=== PATIENT | male | born 1940 | race Hispanic/Latino ===

== ENCOUNTER 2016-09-28 08:55 | Day surgery (SDC) | payer MEDICARE ==
[2016-09-21 14:47] VITALS: BMI 33.0
[2016-09-28 09:19] LABS: ADD MANUAL DIFF? NO
[2016-09-28 09:23] LABS: BASO # 0.02 K/mm3 (0.0-2.0); BASO % 0.3 % (0.0-3.0); EOS # 0.1 (0.0-0.7); EOS % 0.7 % (1.5-5.0); GRAN # 5.36 (1.4-6.5); GRAN % 69.7 % (50.0-68.0); HEMATOCRIT 44.6 % (42.0-52.0); LYMPH # 1.8 (1.2-3.4); LYMPH % 23.1 % (22.0-35.0); MEAN CELL VOLUME 86.1 fL (80.0-105.0); MEAN CORPUSCULAR HEMOGLOBIN 28.8 pg (25.0-35.0); MEAN CORPUSCULAR HGB CONC 33.4 g/dl (31.0-37.0); MEAN PLATELET VOLUME 11.6 fl (7.0-11.0); MONO # 0.5 (0.1-0.6); MONO % 6.2 % (1.0-6.0); PLATELET COUNT 181 10^3/uL (120.0-450.0); RED CELL DISTRIBUTION WIDTH 14.5 % (11.5-14.5); WHITE BLOOD COUNT 7.7 10^3/ul (4.5-11.0)
[2016-09-28 09:32] LABS: ALKALINE PHOSPHATASE 172 U/L (38-133); ALT/SGPT 29 U/L (7-56); AST/SGOT 37 U/L (15-59); BILIRUBIN,TOTAL 1.3 mg/dL (0.2-1.3); BLOOD UREA NITROGEN 12 mg/dL (7-21); CALCIUM 9.5 mg/dL (8.4-10.5); CARBON DIOXIDE 26 mmol/L (21-33); CHLORIDE 102 mmol/L (95-110); GFR AFRICAN-AMERICAN > 60; GLUCOSE,RANDOM 219 mg/dL (70-110); POTASSIUM 4.7 mmol/L (3.6-5.0); SODIUM 143 mmol/L (132-148); TOTAL PROTEIN 8.7 g/dL (5.8-8.3)
[2016-09-28 09:37] LABS: INR 1.09 (0.93-1.08); PARTIAL THROMBOPLASTIN TIME 27.6 Seconds (23.7-30.8)
[2016-09-28] MEDS ORDERED: Methylene Blue 10 mg/ml (1ml) Inj ONE (11:20)
[2016-09-28] MEDS ORDERED: Propofol 10 mg/ml Inj (20 ML) ONE ×2 (11:26→12:31)
[2016-09-28] MEDS ORDERED: Midazolam 2 MG/2 ML VIAL ONE (11:27)
[2016-09-28] MEDS ORDERED: Lactated Ringer's 1,000 ML IV SCH (12:45)
--- NOTE | 2016-09-28 12:54 | RAD ---
HISTORY: SCOPE LOCATION COMPARISON: 04/03/2016 FINDINGS: BOWEL: Unremarkable bowel gas pattern. Colonoscope seen in the region of the mid transverse colon. The precise position cannot be determined from this examination. However, based upon prior examination with colon distended with air, there is tortuosity of the mid transverse colon at approximately the point at which the scope resides on this examination. BONES: Normal. OTHER FINDINGS: None. IMPRESSION: Colonoscope approximately at the level of mid transverse colon.
[2016-09-30 15:29] VITALS: O2SAT 98
[2016-09-30 15:34] VITALS: PULSE 63
[2016-09-30 15:38] VITALS: BP 155/91; RESP 16; TEMP 98.3
== END 2016-09-28 14:10 | disposition home or self-care (01) ==
LOC: ENDO 08:55
PROVIDERS: ATTEND Internal Medicine Gastroenterology
DX: D12.3 Benign neoplasm of transverse colon (principal); I45.2 Bifascicular block; E11.9 Type 2 diabetes mellitus without complications; I10 Essential (primary) hypertension; E78.5 Hyperlipidemia, unspecified; F32.9 Major depressive disorder, single episode, unspecified; R06.09 Other forms of dyspnea
CPT/HCPCS: 36415; 45380; 45381; 74000; 80053; 85025; 85610; 85730; 88305; J2250; J2704; J3010; J7040; J7120; Q9968

== ENCOUNTER 2016-12-28 08:25 | Inpatient (IN) | payer MEDICARE ==
[2016-09-21 14:47] VITALS: BMI 33.0
[2016-12-28 08:53] LABS: ADD MANUAL DIFF? NO
[2016-12-28 08:55] LABS: BASO # 0.02 K/mm3 (0.0-2.0); BASO % 0.2 % (0.0-3.0); EOS % 0.5 % (1.5-5.0); GRAN # 5.87 (1.4-6.5); GRAN % 73.3 % (50.0-68.0); HEMATOCRIT 41.8 % (42.0-52.0); LYMPH # 1.6 (1.2-3.4); LYMPH % 19.9 % (22.0-35.0); MEAN CELL VOLUME 88.7 fL (80.0-105.0); MEAN CORPUSCULAR HEMOGLOBIN 29.9 pg (25.0-35.0); MEAN CORPUSCULAR HGB CONC 33.7 g/dl (31.0-37.0); MEAN PLATELET VOLUME 11.5 fl (7.0-11.0); MONO # 0.5 (0.1-0.6); MONO % 6.1 % (1.0-6.0); PLATELET COUNT 173 10^3/uL (120.0-450.0); RED CELL DISTRIBUTION WIDTH 14.2 % (11.5-14.5)
[2016-12-28 09:04] LABS: BLOOD UREA NITROGEN 13 mg/dL (7-21); CALCIUM 9.6 mg/dL (8.4-10.5); CARBON DIOXIDE 24 mmol/L (21-33); CHLORIDE 103 mmol/L (98-107); GFR AFRICAN-AMERICAN > 60; GLUCOSE,RANDOM 142 mg/dL (70-110); POTASSIUM 3.9 mmol/L (3.6-5.0); SODIUM 141 mmol/L (132-148)
[2016-12-28] MEDS ORDERED: Etomidate 20 mg/10ml Inj IV ONE (10:16)
[2016-12-28] MEDS ORDERED: Succinylcholine 200 mg/10 ml Inj IV ONE (10:16)
[2016-12-28] MEDS ORDERED: Midazolam 2 MG/2 ML VIAL ONE (11:11)
[2016-12-28] MEDS ORDERED: Phenylephrine 10 mg/ml Inj ONE (11:12)
[2016-12-28] MEDS ORDERED: Rocuronium 10 mg/ml (5 ml) ONE ×2 (11:14→13:40)
[2016-12-28] MEDS ORDERED: metroNIDAZOLE IV 500 mg/100 ml 500 MG/100 ML BAG ONE (11:34)
[2016-12-28] MEDS ORDERED: ePHEDrine 50 mg/ml Inj ONE (11:46)
[2016-12-28] MEDS ORDERED: Morphine 4 mg/ml ISec ONE (12:58)
[2016-12-28] MEDS ORDERED: Glycopyrrolate 0.2 mg/ml (2ml vial) ONE (13:52)
[2016-12-28] MEDS ORDERED: Neostigmine Methylsulfate 3mg/3ml Syringe IV ONE (13:53)
[2016-12-28] MEDS ORDERED: Lactated Ringer's 1,000 ML IV SCH (14:18)
[2016-12-28] MEDS ORDERED: HYDROmorphone 0.5 mg/0.5 ml ISec IVP PRN (14:18)
[2016-12-28] MEDS ORDERED: HYDROmorphone 0.5 mg/0.5 ml ISec IVP ONE (14:27)
[2016-12-28] MEDS ORDERED: HYDROmorphone 0.5 mg/0.5 ml ISec ONE (14:28)
--- NOTE | 2016-12-28 14:36 | PCM.SURG1 ---
Surgeon's Initial Post Op Note - Surgeon's Notes Surgeon: Romeo Tanning Wheel Filler: PGY3 Type of Anesthesia: General Endo Pre-Operative Diagnosis: Transverse colon polyp Operative Findings: Proximal transverse colon tattoo, extensive adhesions Post-Operative Diagnosis: Proximal transverse colon polyp Operation Performed: Extended R hemicolectomy, Primary incisional hernia repair , lysis of adhesions Specimen/Specimens Removed: Distal ileum, R colon Estimated Blood Loss: EBL {In ML}: 100 Blood Products Given: N/A Drains Used: No Drains Post-Op Condition: Good Date of Surgery/Procedure: 12/28/16 Time of Surgery/Procedure: 11:15
[2016-12-28] MEDS ORDERED: CeFAZolin 1 gm in NS 100ml IVPB ONE (15:05)
[2016-12-28 15:39] LABS: HEMATOCRIT 42.3 % (42.0-52.0); MEAN CELL VOLUME 89.2 fL (80.0-105.0); MEAN CORPUSCULAR HEMOGLOBIN 29.3 pg (25.0-35.0); MEAN CORPUSCULAR HGB CONC 32.9 g/dl (31.0-37.0); MEAN PLATELET VOLUME 12.3 fl (7.0-11.0); RED CELL DISTRIBUTION WIDTH 14.5 % (11.5-14.5); WHITE BLOOD COUNT 12.2 10^3/ul (4.5-11.0)
--- NOTE | 2016-12-28 16:38 | CARD ---
APPROVED REPORT EKG Measurement Heart [id number] <Conclusion> Sinus rhythm with 1st degree AV block Left axis deviation ILBB Abnormal ECG
[2016-12-28] MEDS: HYDROmorphone 1 mg/ml ISec IVP PRN (16:59)
--- NOTE | 2016-12-28 17:23 | OP ---
PROCEDURE DATE: 12/28/2016 PREOPERATIVE DIAGNOSES: Transverse colon sessile polyp, incarcerated incisional hernia. POSTOPERATIVE DIAGNOSIS: Transverse colon sessile polyp, incarcerated incisional hernia and dense intraabdominal adhesions. PROCEDURE PERFORMED: Extended right hemicolectomy. Repair of incarcerated incisional hernia. Lysis of extensive, dense intraabdominal adhesions. SURGEON: Dr. Walters NIPPING MACHINE OPERATOR: Dr. Dangelo ANESTHESIOLOGIST: Dr. Montaño ANESTHESIA: General endotracheal. ESTIMATED BLOOD LOSS: 100 mL. SPECIMEN: Extended right colon. The patient is a 76-year-old male who had a previously noted sessile polyp in the transverse colon, who was initially attempted to have an endoscopic mucosal resection. However, that was unsuccessful and patient was scheduled for excision of that lesion with the adjacent colon. The patient was brought to the operating room and placed on the operating table in a supine position. The patient was connected to EKG, blood pressure and pulse oximeter monitors. The patient then underwent general endotracheal anesthesia and was prepped and draped in usual sterile fashion. First, standard timeout procedure took place and everybody in the room agreed as to the patient's identity, diagnosis and procedure to be performed. First, a midline incision was made along the previous incision for small bowel surgery. This was carried through the subcutaneous fat and down to the fascia. The old stitches were removed and the incision was started just above the old incision in order to enter the abdominal cavity. Once we were able to enter the abdominal cavity, I noted that there was fairly dense adhesions of omentum to the anterior abdominal wall. This was carefully and tediously taken down as well as the omentum which was stuck within the hernia to the side of the midline was also carefully teased out from the hernia and the hernia defect itself was exposed. The hernia defect appeared to be about 4 cm in diameter. Once the anterior abdominal wall was freed up from the underlying bowel, I then carefully proceeded with evaluation of the bowel. There were dense adhesions of the small bowel in between the loops themselves as well as to the omentum. A tedious and prolonged dissection took place. We were able to finally expose the transverse colon and separate it from the underlying small bowel. It was several t loops of small bowel all the way down to the cecum. This took about an hour and 15 minutes in order to get through all the dense adhesions. At this point, we were able to identify the area of tattooed colon, which indicated the area of the polyp, which appeared to be just about 130 into the transverse colon. Now, in order to proceed with the excision, we decided to proceed with extended right hemicolectomy by mobilizing the right colon all the way down to the cecum and elevating it up above the wound. Now, the transverse colon was transected about 10 cm distal to the lesion using FANY stapler and so was the terminal ileum at about 10 cm prior to the ileocecal valve. Once this was transected, the mesentery was elevated and carefully dissected down through the right branch of the transverse colic vessels down to the ileocolic artery, which was taken out at its origin. All the adjacent lymph nodes were swept together with the specimen. Once the ileocolic artery was ligated, the specimen was sent for pathology. The abdominal cavity was then copiously irrigated and all the irrigant fluid was suctioned out. A standard side-to- side anastomosis between the terminal ileum and transverse colon was created using FANY and TA staplers. The mesenteric defect was repaired using 3-0 Vicryl. A careful evaluation of the remaining portion of the bowel revealed normal bowel other than adhesions which were previously taken down. The abdominal cavity was now copiously irrigated. All the irrigant fluid was suctioned out. The bowel was returned into the abdominal cavity, covered with the remaining portion of the omentum. The NG tube was checked and it was in place. We then proceeded with closure of the abdominal cavity using PDS sutures. Prior to the closure of the fascia, the hernia defect was carefully exposed and the edges of the fascia were now closed using the #1 PDS interrupted [id number] stitches. Once the defect was completely closed, I then proceeded with final closure of the fascia through the midline incision. Once this was completed, the subcutaneous tissues were also reapproximated using 3-0 Vicryl and the skin was closed using surgical anuj. The patient tolerated the procedure well and there were no complications. Sterile dressing was applied to the wound. The patient was awakened, extubated and transferred to the recovery room for further observation. Dudley Walters MD cc: [phone] TT: 12/28/2016 17:22:40 en YOLANDA
[2016-12-28] MEDS ORDERED: Dextrose 5%/0.45% NS 1,000 ML IV SCH (17:45)
[2016-12-28] MEDS: Insulin Lispro (humaLOG) MEDIUM Coverage SC SCH ×2 (18:52→23:22)
[2016-12-28] MEDS: Levalbuterol 0.63 MG/3 ML Inhal Soln UD IH SCH (19:43)
[2016-12-28] MEDS: ceFAZolin 1 gm in NS 1 GM/100 ML BAG IVPB SCH (23:25)
[2016-12-29] MEDS: Levalbuterol 0.63 MG/3 ML Inhal Soln UD IH SCH ×4 (01:55→19:36)
[2016-12-29] MEDS: ceFAZolin 1 gm in NS 1 GM/100 ML BAG IVPB SCH (05:57)
[2016-12-29] MEDS: Insulin Lispro (humaLOG) MEDIUM Coverage SC SCH ×3 (07:02→16:36)
[2016-12-29 07:45] LABS: ADD MANUAL DIFF? NO
[2016-12-29 07:49] LABS: BASO # 0.01 K/mm3 (0.0-2.0); BASO % 0.1 % (0.0-3.0); GRAN # 12.86 (1.4-6.5); GRAN % 85.3 % (50.0-68.0); HEMATOCRIT 34.5 % (42.0-52.0); LYMPH # 0.9 (1.2-3.4); LYMPH % 6.2 % (22.0-35.0); MEAN CELL VOLUME 87.6 fL (80.0-105.0); MEAN CORPUSCULAR HEMOGLOBIN 28.7 pg (25.0-35.0); MEAN CORPUSCULAR HGB CONC 32.8 g/dl (31.0-37.0); MEAN PLATELET VOLUME 12.3 fl (7.0-11.0); MONO # 1.3 (0.1-0.6); MONO % 8.4 % (1.0-6.0); PLATELET COUNT 251 10^3/uL (120.0-450.0); RED CELL DISTRIBUTION WIDTH 14.7 % (11.5-14.5); WHITE BLOOD COUNT 15.1 10^3/ul (4.5-11.0)
[2016-12-29 07:56] LABS: ALB/GLOB RATIO 1.2 (1.1-1.8); BILIRUBIN,TOTAL 0.8 mg/dL (0.2-1.3); CALCIUM 8.9 mg/dL (8.4-10.5); TOTAL PROTEIN 7.4 g/dL (5.8-8.3)
[2016-12-29 08:07] LABS: TROPONIN I 0.04 ng/mL
[2016-12-29] MEDS ORDERED: Sodium Chloride 0.9% 1,000 ML IV SCH (08:30)
[2016-12-29] MEDS: HYDROmorphone 1 mg/ml ISec IVP PRN (09:39)
[2016-12-29] MEDS: Sodium Chloride 0.9% 1,000 ML IV SCH ×2 (10:30→18:30)
--- NOTE | 2016-12-29 10:35 | CP.PCM.PN ---
Subjective - Date & Time of Evaluation Date of Evaluation: 12/29/16 Time of Evaluation: 06:45 - Subjective Subjective: General Surgery Pt S&E, NAEO. Pt with some incisional pain, declining meds at this time. Flores out. Encouraged ambulation. Will make sure pt gets IS device and AE hose. No flatus/BM. Objective - Vital Signs/Intake and Output Vital Signs (last 24 hours): Temp Pulse Resp BP Pulse Ox 97.6 F 111 H 21 152/95 H 92 L 12/29/16 09:28 12/29/16 09:28 12/29/16 09:28 12/29/16 09:28 12/29/16 09:28 Intake and Output: 12/29/16 12/29/16 06:59 18:59 Intake Total 0 Output Total 275 Balance -275 - Medications Medications: Current Medications Heparin Sodium (Porcine) (Heparin) 5,000 units SC Q12 [facility] PRN Reason: Protocol Last Admin: 12/29/16 09:31 Dose: 5,000 units Hydromorphone HCl (Dilaudid) 1 mg IVP Q4H PRN PRN Reason: Pain, moderate (4-7) Last Admin: 12/29/16 09:39 Dose: 1 mg Sodium Chloride (Sodium Chloride 0.9%) 1,000 mls @ 125 mls/hr IV .Q8H [facility] Insulin Human Lispro (Humalog Med) 0 units SC Q6H [facility] PRN Reason: Protocol Last Admin: 12/29/16 07:02 Dose: 3 units Levalbuterol HCl (Xopenex) 0.63 mg IH [id number] [facility] Last Admin: 12/29/16 07:23 Dose: 0.63 mg Ondansetron HCl (Zofran Inj) 4 mg IVP Q4H PRN PRN Reason: Nausea/Vomiting Pantoprazole Sodium (Protonix Inj) 40 mg IVP Q12 [facility] Last Admin: 12/29/16 09:31 Dose: 40 mg - Labs Labs: 12/29/16 07:00 12/29/16 07:00 - Constitutional Appears: Non-toxic, No Acute Distress - Head Exam Head Exam: ATRAUMATIC, NORMOCEPHALIC - Eye Exam Eye Exam: EOMI. absent: Scleral icterus - Respiratory Exam Respiratory Exam: NORMAL BREATHING PATTERN. absent: Respiratory Distress - GI/Abdominal Exam GI & Abdominal Exam: Soft, Tenderness (at incision site). absent: Distended, Firm, Guarding, Rigid, Rebound Additional comments: Dressing C/D/I - Neurological Exam Neurological Exam: Alert, Awake - Skin Skin Exam: Dry, Warm Assessment and Plan - Assessment and Plan (Free Text) Assessment: 76M S/P Extended R hemicolectomy Plan: DCed NGT Get IS and AE hose Increased IVF Analgesia Encouraged Ambulation D/W Dr. Romeo Pyle PGY3
[2016-12-29] MEDS ORDERED: Sodium Chloride 0.9% 1,000 ML IV STA (16:22)
[2016-12-30] MEDS: Levalbuterol 0.63 MG/3 ML Inhal Soln UD IH SCH ×4 (01:34→19:52)
[2016-12-30] MEDS: Sodium Chloride 0.9% 1,000 ML IV SCH ×4 (05:41→18:01)
[2016-12-30] MEDS: HYDROmorphone 1 mg/ml ISec IVP PRN ×3 (05:56→18:05)
[2016-12-30 08:21] LABS: ADD MANUAL DIFF? NO
[2016-12-30 08:26] LABS: GRAN # 11.06 (1.4-6.5); GRAN % 81.9 % (50.0-68.0); HEMATOCRIT 30.7 % (42.0-52.0); LYMPH # 1.3 (1.2-3.4); LYMPH % 9.6 % (22.0-35.0); MEAN CELL VOLUME 87.5 fL (80.0-105.0); MEAN CORPUSCULAR HEMOGLOBIN 28.8 pg (25.0-35.0); MEAN CORPUSCULAR HGB CONC 32.9 g/dl (31.0-37.0); MEAN PLATELET VOLUME 11.8 fl (7.0-11.0); MONO # 1.2 (0.1-0.6); MONO % 8.5 % (1.0-6.0); PLATELET COUNT 212 10^3/uL (120.0-450.0); WHITE BLOOD COUNT 13.5 10^3/ul (4.5-11.0)
[2016-12-30] MEDS: Insulin Lispro (humaLOG) MEDIUM Coverage SC SCH ×4 (08:38→22:00)
[2016-12-30] MEDS: Piperacillin/Tazobact 3.375 gm 100 ML IVPB SCH ×3 (08:39→23:45)
[2016-12-30] MEDS: metroNIDAZOLE IV 500 mg/100 ml 500 MG/100 ML BAG IVPB SCH ×3 (08:39→21:36)
[2016-12-30 08:46] LABS: ALB/GLOB RATIO 1.1 (1.1-1.8); ALKALINE PHOSPHATASE 70 U/L (38-133); ALT/SGPT 41 U/L (7-56); AST/SGOT 44 U/L (15-59); BILIRUBIN,DIRECT 0.4 mg/dL (0.0-0.4); BILIRUBIN,TOTAL 0.6 mg/dL (0.2-1.3); BLOOD UREA NITROGEN 27 mg/dL (7-21); CALCIUM 8.6 mg/dL (8.4-10.5); CARBON DIOXIDE 21 mmol/L (21-33); CHLORIDE 106 mmol/L (98-107); GFR AFRICAN-AMERICAN > 60; GLUCOSE,RANDOM 170 mg/dL (70-110); POTASSIUM 3.8 mmol/L (3.6-5.0); SODIUM 139 mmol/L (132-148); TOTAL PROTEIN 6.8 g/dL (5.8-8.3)
[2016-12-30 09:33] LABS: URINE BILIRUBIN NEGATIVE (NEGATIVE); URINE BLOOD SMALL (NEGATIVE); URINE GLUCOSE (UA) NEGATIVE (NEGATIVE); URINE KETONE 15 mg/dL (NEGATIVE); URINE LEUKOCYTE ESTERASE NEGATIVE Leu/uL (NEGATIVE); URINE PROTEIN 30 mg/dL (<30 mg/dL); URINE UROBILINOGEN 0.2 E.U./dL (<1 E.U./dL)
[2016-12-30 09:34] LABS: URINE APPEARANCE CLEAR (CLEAR); URINE COLOR YELLOW (YELLOW)
--- NOTE | 2016-12-30 09:51 | CP.PCM.PN ---
Subjective - Date & Time of Evaluation Date of Evaluation: 12/30/16 Time of Evaluation: 07:05 - Subjective Subjective: General surgery progress note for Dr. Walters Patient seen and examined at bedside. Patient passed scant amount of urine 2 times last night. Flomax was given. Patient reports of pain at incision site. Patient has not pass flatus or bowel movement yet. Denies fever, chills, nausea or vomiting. Objective - Vital Signs/Intake and Output Vital Signs (last 24 hours): Temp Pulse Resp BP Pulse Ox 99.8 F H 94 H 18 142/89 93 L 12/30/16 08:25 12/30/16 08:25 12/30/16 08:25 12/30/16 08:25 12/30/16 08:25 Intake and Output: 12/30/16 12/30/16 06:59 18:59 Intake Total 540 Output Total 225 Balance 315 - Medications Medications: Current Medications Acetaminophen (Tylenol 325mg Tab) 650 mg PO Q6H PRN PRN Reason: Fever >100.4 F Alprazolam (Xanax) 0.5 mg PO HS [facility] PRN Reason: Protocol Diltiazem HCl (Cardizem Cd) 240 mg PO QPM [facility] Heparin Sodium (Porcine) (Heparin) 5,000 units SC Q12 [facility] PRN Reason: Protocol Last Admin: 12/30/16 09:28 Dose: 5,000 units Hydromorphone HCl (Dilaudid) 1 mg IVP Q4H PRN PRN Reason: Pain, moderate (4-7) Last Admin: 12/30/16 05:56 Dose: 1 mg Sodium Chloride (Sodium Chloride 0.9%) 1,000 mls @ 125 mls/hr IV .Q8H [facility] Last Admin: 12/30/16 08:46 Dose: 125 mls/hr Metronidazole (Flagyl) 500 mg in 100 mls @ 100 mls/hr IVPB Q8 [facility] PRN Reason: Protocol Last Admin: 12/30/16 08:39 Dose: 100 mls/hr Piperacillin Sod/Tazobactam Sod (Zosyn 3.375 In Ns 100ml) 100 mls @ 200 mls/hr IVPB Q8H [facility] PRN Reason: Protocol Stop: 01/06/17 07:59 Last Admin: 12/30/16 08:39 Dose: 200 mls/hr Insulin Human Lispro (Humalog Med) 0 units SC ACHS [facility] PRN Reason: Protocol Last Admin: 12/30/16 08:38 Dose: 1 units Levalbuterol HCl (Xopenex) 0.63 mg IH [id number] [facility] Last Admin: 12/30/16 07:20 Dose: 0.63 mg Montelukast Sodium (Singulair) 10 mg PO QPM [facility] Non-Formulary Medication (Lurasidone Hcl [Latuda]) 60 mg PO QPM [facility] Ondansetron HCl (Zofran Inj) 4 mg IVP Q4H PRN PRN Reason: Nausea/Vomiting Pantoprazole Sodium (Protonix Inj) 40 mg IVP Q12 [facility] Last Admin: 12/30/16 09:28 Dose: 40 mg Tamsulosin HCl (Flomax) 0.4 mg PO DAILY [facility] Last Admin: 12/30/16 09:28 Dose: 0.4 mg - Labs Labs: 12/30/16 08:00 12/30/16 08:00 - Constitutional Appears: Non-toxic, No Acute Distress - Respiratory Exam Respiratory Exam: absent: Respiratory Distress - Cardiovascular Exam Cardiovascular Exam: +S1, +S2 - GI/Abdominal Exam GI & Abdominal Exam: Soft, Tenderness Additional comments: Abdominal binder in place, wound dressing clean, dry and intact. No signs of infection appreciated. Dressing changed with sterile gauze and Tegaderm. - Neurological Exam Neurological Exam: Alert, Awake - Skin Skin Exam: Dry, Warm Assessment and Plan - Assessment and Plan (Free Text) Assessment: 76 male S/P extended right hemicolectomy POD#2 Plan: -Continue with IS and AE hose -Encouraged Ambulation -IVF and flomax -Medical management per primary -Will D/W Dr. Walters
[2016-12-30 10:10] LABS: URINE EPITHELIAL CELLS 0 - 2 /hpf (0-5); URINE RBC 0 - 2 /hpf (0-2)
[2016-12-30 10:11] LABS: URINE BACTERIA SMALL (NEG)
--- NOTE | 2016-12-30 11:00 | RAD ---
HISTORY: POST OP LEUKOCYTOSIS COMPARISON: 12/18/2016 TECHNIQUE: Chest PA and lateral FINDINGS: LUNGS: Currently inspiration is less. Bibasilar discoid atelectatic changes are suggested. No more extensive consolidation suggested PLEURA: No pneumothorax apparent.Minimal interval pleural effusions are possible. CARDIOVASCULAR: Cardiac prominence- likely in large part due to shallow inspiration OSSEOUS STRUCTURES: Moderate thoracic spondylosis. Hypertrophic callus surrounding old healed inferior left rib fractures. Bilateral acromioclavicular joint arthrosis VISUALIZED UPPER ABDOMEN: Normal. OTHER FINDINGS: None. IMPRESSION: Limited inspiration. Bibasilar discoid atelectatic change.
[2016-12-30] MEDS: diltiaZEM 240 mg/24 Hours CD Cap PO SCH (17:38)
[2016-12-30] MEDS: LURASIDONE HCL 60 MG PO SCH (18:00)
[2016-12-31] MEDS: HYDROmorphone 1 mg/ml ISec IVP PRN ×2 (01:39→05:54)
[2016-12-31] MEDS: Sodium Chloride 0.9% 1,000 ML IV SCH ×3 (01:41→18:58)
[2016-12-31] MEDS: Levalbuterol 0.63 MG/3 ML Inhal Soln UD IH SCH ×5 (01:44→19:08)
[2016-12-31] MEDS: metroNIDAZOLE IV 500 mg/100 ml 500 MG/100 ML BAG IVPB SCH ×3 (05:09→21:41)
[2016-12-31] MEDS: Piperacillin/Tazobact 3.375 gm 100 ML IVPB SCH ×4 (05:55→23:16)
[2016-12-31 07:28] LABS: ADD MANUAL DIFF? NO
[2016-12-31 07:30] LABS: BASO # 0.01 K/mm3 (0.0-2.0); BASO % 0.2 % (0.0-3.0); EOS % 0.5 % (1.5-5.0); GRAN # 3.95 (1.4-6.5); GRAN % 62.9 % (50.0-68.0); HEMATOCRIT 27.2 % (42.0-52.0); LYMPH # 1.6 (1.2-3.4); LYMPH % 24.8 % (22.0-35.0); MEAN CELL VOLUME 87.7 fL (80.0-105.0); MEAN CORPUSCULAR HEMOGLOBIN 28.7 pg (25.0-35.0); MEAN CORPUSCULAR HGB CONC 32.7 g/dl (31.0-37.0); MEAN PLATELET VOLUME 10.7 fl (7.0-11.0); MONO # 0.7 (0.1-0.6); MONO % 11.6 % (1.0-6.0); PLATELET COUNT 161 10^3/uL (120.0-450.0); WHITE BLOOD COUNT 6.3 10^3/ul (4.5-11.0)
[2016-12-31 07:46] LABS: ALB/GLOB RATIO 1.1 (1.1-1.8); ALKALINE PHOSPHATASE 55 U/L (38-133); ALT/SGPT 35 U/L (7-56); AST/SGOT 31 U/L (15-59); BILIRUBIN,DIRECT 0.3 mg/dL (0.0-0.4); BILIRUBIN,TOTAL 0.6 mg/dL (0.2-1.3); BLOOD UREA NITROGEN 18 mg/dL (7-21); CALCIUM 7.8 mg/dL (8.4-10.5); CARBON DIOXIDE 24 mmol/L (21-33); CHLORIDE 107 mmol/L (95-110); GFR AFRICAN-AMERICAN > 60; GLUCOSE,RANDOM 139 mg/dL (70-110); MAGNESIUM 1.9 mg/dL (1.7-2.2); POTASSIUM 3.5 mmol/L (3.6-5.0); SODIUM 139 mmol/L (132-148); TOTAL PROTEIN 5.7 g/dL (5.8-8.3)
--- NOTE | 2016-12-31 08:34 | CP.PCM.PN ---
Subjective - Date & Time of Evaluation Date of Evaluation: 12/31/16 Time of Evaluation: 07:25 - Subjective Subjective: General surgery progress note for Dr. Walters Patient seen and examined at bedside. No acute events overnight. Patient complains of pain at incision site. Patient reports of passing flatus but no BM yet. Denies fever, chills, shortness of breath, chest pain, nausea, or vomiting Objective - Vital Signs/Intake and Output Vital Signs (last 24 hours): Temp Pulse Resp BP Pulse Ox 99 F 79 19 133/80 95 12/31/16 08:12 12/31/16 08:12 12/31/16 08:12 12/31/16 08:12 12/31/16 08:12 Intake and Output: 12/31/16 12/31/16 06:59 18:59 Intake Total 1790 Output Total 575 Balance 1215 - Medications Medications: Current Medications Acetaminophen (Tylenol 325mg Tab) 650 mg PO Q6H PRN PRN Reason: Fever >100.4 F Alprazolam (Xanax) 0.5 mg PO HS [facility] PRN Reason: Protocol Last Admin: 12/30/16 21:28 Dose: 0.5 mg Diltiazem HCl (Cardizem Cd) 240 mg PO QPM [facility] Last Admin: 12/30/16 17:38 Dose: 240 mg Diphenhydramine HCl (Benadryl) 25 mg IVP Q12 [facility] Stop: 12/31/16 22:01 Furosemide (Lasix) 20 mg IVP Q12 [facility] Stop: 12/31/16 22:01 Heparin Sodium (Porcine) (Heparin) 5,000 units SC Q12 [facility] PRN Reason: Protocol Last Admin: 12/30/16 21:28 Dose: 5,000 units Hydromorphone HCl (Dilaudid) 1 mg IVP Q4H PRN PRN Reason: Pain, moderate (4-7) Last Admin: 12/31/16 05:54 Dose: 1 mg Sodium Chloride (Sodium Chloride 0.9%) 1,000 mls @ 125 mls/hr IV .Q8H [facility] Last Admin: 12/31/16 01:41 Dose: 125 mls/hr Metronidazole (Flagyl) 500 mg in 100 mls @ 100 mls/hr IVPB Q8 [facility] PRN Reason: Protocol Last Admin: 12/31/16 05:09 Dose: 100 mls/hr Piperacillin Sod/Tazobactam Sod (Zosyn 3.375 In Ns 100ml) 100 mls @ 200 mls/hr IVPB Q8H [facility] PRN Reason: Protocol Stop: 01/06/17 07:59 Last Admin: 12/31/16 08:03 Dose: Not Given Potassium Chloride (Potassium Chloride 20 Meq/100 Ml) 20 meq in 100 mls @ 50 mls/hr IVPB Q2H [facility] Stop: 12/31/16 12:14 Insulin Human Lispro (Humalog Med) 0 units SC ACHS [facility] PRN Reason: Protocol Last Admin: 12/30/16 22:00 Dose: Not Given Levalbuterol HCl (Xopenex) 0.63 mg IH [id number] [facility] Last Admin: 12/31/16 07:52 Dose: 0.63 mg Montelukast Sodium (Singulair) 10 mg PO QPM [facility] Last Admin: 12/30/16 17:39 Dose: 10 mg Non-Formulary Medication (Lurasidone Hcl [Latuda]) 60 mg PO QPM [facility] Last Admin: 12/30/16 18:00 Dose: Not Given Ondansetron HCl (Zofran Inj) 4 mg IVP Q4H PRN PRN Reason: Nausea/Vomiting Pantoprazole Sodium (Protonix Inj) 40 mg IVP Q12 [facility] Last Admin: 12/30/16 21:28 Dose: 40 mg Tamsulosin HCl (Flomax) 0.4 mg PO DAILY [facility] Last Admin: 12/30/16 09:28 Dose: 0.4 mg - Labs Labs: 12/31/16 07:15 12/31/16 07:15 - Constitutional Appears: Non-toxic, No Acute Distress - Head Exam Head Exam: ATRAUMATIC, NORMAL INSPECTION - Eye Exam Eye Exam: EOMI, Normal appearance - ENT Exam ENT Exam: Mucous Membranes Moist - Respiratory Exam Respiratory Exam: NORMAL BREATHING PATTERN. absent: Respiratory Distress - Cardiovascular Exam Cardiovascular Exam: +S1, +S2 - GI/Abdominal Exam GI & Abdominal Exam: Soft, Tenderness (at incision site) Additional comments: Abdominal binder in place, wound dressing dry and intact with multiple surgical anuj in place. No signs of infection appreciated - Neurological Exam Neurological Exam: Alert, Awake, Oriented x3 - Skin Skin Exam: Dry, Warm Assessment and Plan - Assessment and Plan (Free Text) Assessment: 76 male S/P extended right hemicolectomy POD#3 Plan: -Continue with IS and AE hose -Encouraged Ambulation -IVF -C/w flomax, urine output improving -Medical management per primary -Will D/W Dr. Walters
--- NOTE | 2016-12-31 10:21 | CT ---
PROCEDURE: CT Abdomen and Pelvis without intravenous contrast HISTORY: POST COLECTOMY ANEMIA/??BLEED COMPARISON: None. TECHNIQUE: Without oral or IV contrast. Contrast Dose: Radiation dose: Total exam DLP = 1105 mGy-cm. This CT exam was performed using one or more of the following dose reduction techniques: Automated exposure control, adjustment of the mA and/or kV according to patient size, and/or use of iterative reconstruction technique. FINDINGS: LOWER THORAX: There is dense consolidation in the left lower lobe with air bronchograms. Findings consistent with pneumonia LIVER: There is a rim of dense fluid around the liver consistent with intraperitoneal hemorrhage. This has a density measurement between 45 and 55 Hounsfield units. GALLBLADDER AND BILE DUCTS: Unremarkable. PANCREAS: Unremarkable. No gross lesion or ductal dilatation. SPLEEN: Unremarkable. ADRENALS: Unremarkable. No mass. KIDNEYS AND URETERS: Unremarkable. No hydronephrosis. No solid mass. VASCULATURE: Unremarkable. No aortic aneurysm. BOWEL: A suture line is seen in the transverse colon. There has been recent right hemicolectomy. Mildly dilated small bowel loops are seen which may represent a postoperative ileus APPENDIX: Resect PERITONEUM: Small amount of peritoneal hemorrhage LYMPH NODES: Unremarkable. No enlarged lymph nodes. BLADDER: Unremarkable. REPRODUCTIVE: Unremarkable. BONES: No acute fracture. OTHER FINDINGS: None. IMPRESSION: Small amount of intraperitoneal hemorrhage. Mildly dilated small bowel loops consistent with mild postoperative ileus Consolidation and air bronchograms left lower lobe consistent with pneumonia
[2016-12-31] MEDS: Insulin Lispro (humaLOG) MEDIUM Coverage SC SCH ×4 (10:38→22:17)
--- NOTE | 2016-12-31 10:43 | CP.PCM.PN ---
Subjective - Date & Time of Evaluation Date of Evaluation: 12/31/16 Time of Evaluation: 10:30 - Subjective Subjective: SEEN OOB TO CHAIR IN 360-1 NO BM C/O ABD PAIN. Objective - Vital Signs/Intake and Output Vital Signs (last 24 hours): Temp Pulse Resp BP Pulse Ox 99 F 79 19 133/80 95 12/31/16 08:12 12/31/16 08:12 12/31/16 08:12 12/31/16 10:39 12/31/16 08:12 Intake and Output: 12/31/16 12/31/16 06:59 18:59 Intake Total 1790 Output Total 575 Balance 1215 - Medications Medications: Current Medications Acetaminophen (Tylenol 325mg Tab) 650 mg PO Q6H PRN PRN Reason: Fever >100.4 F Acetylcysteine (Acetylcysteine 20%) 4 ml IH [id number] [facility] Alprazolam (Xanax) 0.5 mg PO HS [facility] PRN Reason: Protocol Last Admin: 12/30/16 21:28 Dose: 0.5 mg Diltiazem HCl (Cardizem Cd) 240 mg PO QPM [facility] Last Admin: 12/30/16 17:38 Dose: 240 mg Diphenhydramine HCl (Benadryl) 25 mg IVP Q12 [facility] Stop: 12/31/16 22:01 Furosemide (Lasix) 20 mg IVP Q12 [facility] Stop: 12/31/16 22:01 Last Admin: 12/31/16 10:39 Dose: 20 mg Heparin Sodium (Porcine) (Heparin) 5,000 units SC Q12 [facility] PRN Reason: Protocol Last Admin: 12/31/16 10:39 Dose: 5,000 units Hydromorphone HCl (Dilaudid) 1 mg IVP Q4H PRN PRN Reason: Pain, moderate (4-7) Last Admin: 12/31/16 05:54 Dose: 1 mg Sodium Chloride (Sodium Chloride 0.9%) 1,000 mls @ 125 mls/hr IV .Q8H [facility] Last Admin: 12/31/16 01:41 Dose: 125 mls/hr Metronidazole (Flagyl) 500 mg in 100 mls @ 100 mls/hr IVPB Q8 [facility] PRN Reason: Protocol Last Admin: 12/31/16 05:09 Dose: 100 mls/hr Piperacillin Sod/Tazobactam Sod (Zosyn 3.375 In Ns 100ml) 100 mls @ 200 mls/hr IVPB Q8H [facility] PRN Reason: Protocol Stop: 01/06/17 07:59 Last Admin: 12/31/16 08:03 Dose: Not Given Potassium Chloride (Potassium Chloride 20 Meq/100 Ml) 20 meq in 100 mls @ 50 mls/hr IVPB Q2H [facility] Stop: 12/31/16 12:14 Insulin Human Lispro (Humalog Med) 0 units SC ACHS [facility] PRN Reason: Protocol Last Admin: 12/31/16 10:38 Dose: 1 units Levalbuterol HCl (Xopenex) 0.63 mg IH [id number] [facility] Montelukast Sodium (Singulair) 10 mg PO QPM [facility] Last Admin: 12/30/16 17:39 Dose: 10 mg Non-Formulary Medication (Lurasidone Hcl [Latuda]) 60 mg PO QPM [facility] Last Admin: 12/30/16 18:00 Dose: Not Given Ondansetron HCl (Zofran Inj) 4 mg IVP Q4H PRN PRN Reason: Nausea/Vomiting Pantoprazole Sodium (Protonix Inj) 40 mg IVP Q12 [facility] Last Admin: 12/31/16 10:39 Dose: 40 mg Tamsulosin HCl (Flomax) 0.4 mg PO DAILY [facility] Last Admin: 12/31/16 10:39 Dose: 0.4 mg - Labs Labs: 12/31/16 07:15 12/31/16 07:15 - Constitutional Appears: Well - Head Exam Head Exam: ATRAUMATIC, NORMAL INSPECTION, NORMOCEPHALIC - Eye Exam Eye Exam: EOMI, Normal appearance, PERRL - ENT Exam ENT Exam: Mucous Membranes Moist, Normal Exam - Neck Exam Neck Exam: Full ROM, Normal Inspection. absent: Lymphadenopathy - Respiratory Exam Respiratory Exam: Rhonchi - Cardiovascular Exam Cardiovascular Exam: Tachycardia - GI/Abdominal Exam GI & Abdominal Exam: Distended, Diminished Bowel Sounds, Hypoactive Bowel Sounds - Rectal Exam Rectal Exam: Deferred - Extremities Exam Extremities Exam: Full ROM, Normal Capillary Refill, Normal Inspection. absent : Joint Swelling, Pedal Edema - Back Exam Back Exam: NORMAL INSPECTION - Neurological Exam Neurological Exam: Alert, Awake, CN II-XII Intact, Normal Gait, Oriented x3 Neuro motor strength exam: Left Upper Extremity: 5, Right Upper Extremity: 5, Left Lower Extremity: 5, Right Lower Extremity: 5 - Psychiatric Exam Psychiatric exam: Flat Affect Assessment and Plan - Assessment and Plan (Free Text) Assessment: A/P: POST OPERATIVE INTRA PERITONEAL HEMORRHAGE POST OPERATIVE ANEMIA S/P EXTENDED RIGHT HEMICOLECTOMY TRANSVERSE COLON SESSILE POLYP INCARCERATED INCISIONAL HERNIA DENSE INTRA ABDOMINAL ADHESIONS COPD 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 OBESITY DJD SHOULDERS JOINTS HTN TACHYCARDIA LAHB LBBB T2DM BIBASILAR ATELACTASIS [facility] PNEUMONIA LEUCOCYTOSIS GRANULOCYTOSIS HYPOKALEMIA S/P KEYONNA HYPERURICEMIA ??SEPSIS VS SIRS PLAN PER ORDERS SURGICAL REEVALUATION PRBC TRANSFUSION ID CONSULT Plan: A/P: POST OPERATIVE INTRA PERITONEAL HEMORRHAGE POST OPERATIVE ANEMIA S/P EXTENDED RIGHT HEMICOLECTOMY TRANSVERSE COLON SESSILE POLYP INCARCERATED INCISIONAL HERNIA DENSE INTRA ABDOMINAL ADHESIONS COPD MICRSCOPIC HEMATURIA PROTEINURIA SHELL MDD SCHIZOPHRENIA POST OPERATIVE ILEUS OBESITY DJD SHOULDERS JOINTS HTN TACHYCARDIA LAHB LBBB T2DM BIBASILAR ATELACTASIS [facility] ASSOCIATED PNEUMONIA LEUCOCYTOSIS GRANULOCYTOSIS HYPOKALEMIA S/P KEYONNA HYPERURICEMIA ??SEPSIS VS SIRS PLAN PER ORDERS SURGICAL REEVALUATION PRBC TRANSFUSION ID CONSULT
[2016-12-31] MEDS: DiphenhydrAMINE 50 mg/ml Inj IVP SCH ×2 (10:46→21:42)
[2016-12-31] MEDS: Acetylcysteine 20% Inhal Soln (4ml) IH SCH ×3 (11:40→19:08)
[2016-12-31] MEDS: diltiaZEM 240 mg/24 Hours CD Cap PO SCH (17:45)
[2016-12-31] MEDS: LURASIDONE HCL 60 MG PO SCH (18:58)
[2016-12-31 20:08] LABS: HEMATOCRIT 26.8 % (42.0-52.0); MEAN CELL VOLUME 86.5 fL (80.0-105.0); MEAN CORPUSCULAR HEMOGLOBIN 29.4 pg (25.0-35.0); MEAN PLATELET VOLUME 11.1 fl (7.0-11.0)
[2016-12-31 20:15] LABS: INR 1.14 (0.93-1.08); PARTIAL THROMBOPLASTIN TIME 28.7 Seconds (23.7-30.8)
[2017-01-01 03:19] VITALS: PULSE 70
[2017-01-01] MEDS: metroNIDAZOLE IV 500 mg/100 ml 500 MG/100 ML BAG IVPB SCH (05:34)
[2017-01-01] MEDS: HYDROmorphone 1 mg/ml ISec IVP PRN (05:34)
[2017-01-01 05:44] VITALS: BP 153/80; TEMP 99
--- NOTE | 2017-01-01 07:32 | CP.PCM.PN ---
Subjective - Date & Time of Evaluation Date of Evaluation: 01/01/17 Time of Evaluation: 07:00 - Subjective Subjective: General Surgery Pt S&E, NAEO. 2 units of blood given. BM overnight. Tolerating diet, using IS. C /O some incisional pain. Objective - Vital Signs/Intake and Output Vital Signs (last 24 hours): Temp Pulse Resp BP Pulse Ox 99.0 F 70 20 153/80 H 96 01/01/17 05:33 01/01/17 05:33 01/01/17 05:33 01/01/17 05:33 12/31/16 16:00 Intake and Output: 01/01/17 01/01/17 06:59 18:59 Intake Total 1170 Output Total 1900 Balance -730 - Medications Medications: Current Medications Acetaminophen (Tylenol 325mg Tab) 650 mg PO Q6H PRN PRN Reason: Fever >100.4 F Last Admin: 12/31/16 23:15 Dose: 650 mg Acetylcysteine (Acetylcysteine 20%) 4 ml IH [id number] [facility] Last Admin: 12/31/16 19:08 Dose: 4 ml Alprazolam (Xanax) 0.5 mg PO HS MIKEY PRN Reason: Protocol Last Admin: 12/31/16 21:45 Dose: 0.5 mg Diltiazem HCl (Cardizem Cd) 240 mg PO QPM MIKEY Last Admin: 12/31/16 17:45 Dose: 240 mg Heparin Sodium (Porcine) (Heparin) 5,000 units SC Q12 MIKEY PRN Reason: Protocol Last Admin: 12/31/16 21:43 Dose: 5,000 units Hydromorphone HCl (Dilaudid) 1 mg IVP Q4H PRN PRN Reason: Pain, moderate (4-7) Last Admin: 01/01/17 05:34 Dose: 1 mg Sodium Chloride (Sodium Chloride 0.9%) 1,000 mls @ 125 mls/hr IV .Q8H MIKEY Last Admin: 12/31/16 18:58 Dose: 125 mls/hr Metronidazole (Flagyl) 500 mg in 100 mls @ 100 mls/hr IVPB Q8 MIKEY PRN Reason: Protocol Last Admin: 01/01/17 05:34 Dose: 100 mls/hr Piperacillin Sod/Tazobactam Sod (Zosyn 3.375 In Ns 100ml) 100 mls @ 200 mls/hr IVPB Q8H MIKEY PRN Reason: Protocol Stop: 01/06/17 07:59 Last Admin: 12/31/16 23:16 Dose: 200 mls/hr Insulin Human Lispro (Humalog Med) 0 units SC ACHS MIKEY PRN Reason: Protocol Last Admin: 12/31/16 22:17 Dose: Not Given Levalbuterol HCl (Xopenex) 0.63 mg IH [id number] [facility] Last Admin: 12/31/16 19:08 Dose: 0.63 mg Montelukast Sodium (Singulair) 10 mg PO QPM [facility] Last Admin: 12/31/16 17:45 Dose: 10 mg Non-Formulary Medication (Lurasidone Hcl [Latuda]) 60 mg PO QPM [facility] Last Admin: 12/31/16 18:58 Dose: Not Given Ondansetron HCl (Zofran Inj) 4 mg IVP Q4H PRN PRN Reason: Nausea/Vomiting Pantoprazole Sodium (Protonix Inj) 40 mg IVP Q12 [facility] Last Admin: 12/31/16 21:42 Dose: 40 mg Tamsulosin HCl (Flomax) 0.4 mg PO DAILY [facility] Last Admin: 12/31/16 10:39 Dose: 0.4 mg - Labs Labs: 12/31/16 19:45 12/31/16 07:15 PT 12.3 Seconds (9.9-11.8) H 12/31/16 19:45 INR 1.14 (0.93-1.08) H 12/31/16 19:45 APTT 28.7 Seconds (23.7-30.8) 12/31/16 19:45 - Constitutional Appears: Non-toxic, No Acute Distress - Head Exam Head Exam: ATRAUMATIC, NORMOCEPHALIC - Eye Exam Eye Exam: EOMI. absent: Scleral icterus - Respiratory Exam Respiratory Exam: NORMAL BREATHING PATTERN. absent: Respiratory Distress - GI/Abdominal Exam GI & Abdominal Exam: Soft, Tenderness (at incision site). absent: Distended, Firm, Guarding, Rigid Additional comments: Dressing D/I, small serosanguinous staining - Neurological Exam Neurological Exam: Alert, Awake - Psychiatric Exam Psychiatric exam: Normal Affect, Normal Mood - Skin Skin Exam: Dry, Warm Assessment and Plan - Assessment and Plan (Free Text) Assessment: 76M S/P Extended R hemicolectomy POD#4 Plan: F/U Hgb Advanced diet for lunch Will Change dressing Encouraged Ambulation, IS use D/W Dr. Romeo Pyle PGY3
[2017-01-01] MEDS: Levalbuterol 0.63 MG/3 ML Inhal Soln UD IH SCH ×2 (07:48→13:32)
[2017-01-01] MEDS: Acetylcysteine 20% Inhal Soln (4ml) IH SCH ×2 (07:48→13:32)
--- NOTE | 2017-01-01 07:52 | CP.PCM.PN ---
Subjective - Date & Time of Evaluation Date of Evaluation: 01/01/17 Time of Evaluation: 07:30 - Subjective Subjective: (covering for Dr. Hutson) Patient is seen this morning. Patient's abdomen is distended. He says that he is passing gas and had a bowel movement yesterday. Objective - Vital Signs/Intake and Output Vital Signs (last 24 hours): Temp Pulse Resp BP Pulse Ox 99.0 F 70 20 153/80 H 96 01/01/17 05:33 01/01/17 05:33 01/01/17 05:33 01/01/17 05:33 12/31/16 16:00 Intake and Output: 01/01/17 01/01/17 06:59 18:59 Intake Total 1170 Output Total 1900 Balance -730 - Medications Medications: Current Medications Acetaminophen (Tylenol 325mg Tab) 650 mg PO Q6H PRN PRN Reason: Fever >100.4 F Last Admin: 12/31/16 23:15 Dose: 650 mg Acetylcysteine (Acetylcysteine 20%) 4 ml IH [id number] MIKEY Last Admin: 12/31/16 19:08 Dose: 4 ml Alprazolam (Xanax) 0.5 mg PO HS MIKEY PRN Reason: Protocol Last Admin: 12/31/16 21:45 Dose: 0.5 mg Diltiazem HCl (Cardizem Cd) 240 mg PO QPM [facility]KEY Last Admin: 12/31/16 17:45 Dose: 240 mg Heparin Sodium (Porcine) (Heparin) 5,000 units SC Q12 MIKEY PRN Reason: Protocol Last Admin: 12/31/16 21:43 Dose: 5,000 units Hydromorphone HCl (Dilaudid) 1 mg IVP Q4H PRN PRN Reason: Pain, moderate (4-7) Last Admin: 01/01/17 05:34 Dose: 1 mg Sodium Chloride (Sodium Chloride 0.9%) 1,000 mls @ 125 mls/hr IV .Q8H [facility]KEY Last Admin: 12/31/16 18:58 Dose: 125 mls/hr Metronidazole (Flagyl) 500 mg in 100 mls @ 100 mls/hr IVPB Q8 MIKEY PRN Reason: Protocol Last Admin: 01/01/17 05:34 Dose: 100 mls/hr Piperacillin Sod/Tazobactam Sod (Zosyn 3.375 In Ns 100ml) 100 mls @ 200 mls/hr IVPB Q8H MIKEY PRN Reason: Protocol Stop: 01/06/17 07:59 Last Admin: 12/31/16 23:16 Dose: 200 mls/hr Insulin Human Lispro (Humalog Med) 0 units SC ACHS MIKEY PRN Reason: Protocol Last Admin: 12/31/16 22:17 Dose: Not Given Levalbuterol HCl (Xopenex) 0.63 mg IH [id number] [facility] Last Admin: 12/31/16 19:08 Dose: 0.63 mg Montelukast Sodium (Singulair) 10 mg PO QPM [facility] Last Admin: 12/31/16 17:45 Dose: 10 mg Non-Formulary Medication (Lurasidone Hcl [Latuda]) 60 mg PO QPM [facility] Last Admin: 12/31/16 18:58 Dose: Not Given Ondansetron HCl (Zofran Inj) 4 mg IVP Q4H PRN PRN Reason: Nausea/Vomiting Pantoprazole Sodium (Protonix Inj) 40 mg IVP Q12 [facility] Last Admin: 12/31/16 21:42 Dose: 40 mg Tamsulosin HCl (Flomax) 0.4 mg PO DAILY [facility] Last Admin: 12/31/16 10:39 Dose: 0.4 mg - Labs Labs: 12/31/16 19:45 12/31/16 07:15 PT 12.3 Seconds (9.9-11.8) H 12/31/16 19:45 INR 1.14 (0.93-1.08) H 12/31/16 19:45 APTT 28.7 Seconds (23.7-30.8) 12/31/16 19:45 - Constitutional Appears: No Acute Distress - Head Exam Head Exam: ATRAUMATIC, NORMOCEPHALIC - Respiratory Exam Respiratory Exam: Clear to Ausculation Bilateral, NORMAL BREATHING PATTERN - Cardiovascular Exam Cardiovascular Exam: +S1, +S2 - GI/Abdominal Exam GI & Abdominal Exam: Distended, Soft Additional comments: binder in place - Neurological Exam Neurological Exam: Alert, Awake Assessment and Plan - Assessment and Plan (Free Text) Assessment: s/p right hemicolectomy postop intraperitoneal hemorrhage COPD HTN Type II DM Plan: Patient with distended abdomen. He says that he is passing gas and had a bowel movement. He is status post right hemicolectomy on liquid diet. Diet to be advanced today as per surgery. awaiting results of chemistry and CBC. followup potassium and hemoglobin levels. awaiting ID consult for possible sepsis. CT abdomen and pelvis shows pneumonia. Patient is currently on IV Zosyn and Flagyl. blood and urine cultures negative so far
[2017-01-01] MEDS ORDERED: Meropenem 1g/NS 100mL IVPB 1 GM/100 ML PIGGYBACK IVPB SCH (08:09)
--- NOTE | 2017-01-01 08:15 | CP.PCM.CON ---
History of Present Illness - History of Present Illness History of Present Illness: WEAKNESS FOR DAYS Review of Systems - Review of Systems Systems not reviewed;Unavailable: Acuity of Condition, Unstable Vital Signs, Respiratory Distress, Dementia, Altered Mental Status, Intoxicated, Uncooperative, Psychotic, Intubated, Language Barrier, Other Past Patient History - Past Medical History & Family History Past Medical History?: Yes - Past Social History Smoking Status: Never Smoked - CARDIAC Hx Cardiac Disorders: Yes Hx Hypercholesterolemia: Yes Hx Hypertension: Yes - PULMONARY Hx Respiratory Disorders: Yes Hx Asthma: Yes - NEUROLOGICAL Hx Paralysis: No - HEMATOLOGICAL/ONCOLOGICAL Hx Blood Disorders: No Hx Anemia: Yes - MUSCULOSKELETAL/RHEUMATOLOGICAL Hx Falls: No - GASTROINTESTINAL Hx Gastrointestinal Disorders: Yes - GENITOURINARY/GYNECOLOGICAL Hx Genitourinary Disorders: No - PSYCHIATRIC Hx Emotional Abuse: No Hx Physical Abuse: No - SURGICAL HISTORY Hx Surgeries: Yes - ANESTHESIA Hx Anesthesia Reactions: No Hx Malignant Hyperthermia: No Meds Allergies/Adverse Reactions: Allergies Allergy/AdvReac Type Severity Reaction Status Date / Time No Known Allergies Allergy Verified 09/21/16 14:47 - Medications Medications: Current Medications Acetaminophen (Tylenol 325mg Tab) 650 mg PO Q6H PRN PRN Reason: Fever >100.4 F Last Admin: 12/31/16 23:15 Dose: 650 mg Acetylcysteine (Acetylcysteine 20%) 4 ml IH [id number] [facility] Last Admin: 01/01/17 07:48 Dose: 4 ml Alprazolam (Xanax) 0.5 mg PO HS MIKEY PRN Reason: Protocol Last Admin: 12/31/16 21:45 Dose: 0.5 mg Diltiazem HCl (Cardizem Cd) 240 mg PO QPM [facility] Last Admin: 12/31/16 17:45 Dose: 240 mg Doxycycline Hyclate (Doryx) 100 mg PO Q12 MIKEY PRN Reason: Protocol Stop: 01/10/17 10:01 Heparin Sodium (Porcine) (Heparin) 5,000 units SC Q12 MIKEY PRN Reason: Protocol Last Admin: 12/31/16 21:43 Dose: 5,000 units Hydromorphone HCl (Dilaudid) 1 mg IVP Q4H PRN PRN Reason: Pain, moderate (4-7) Last Admin: 01/01/17 05:34 Dose: 1 mg Sodium Chloride (Sodium Chloride 0.9%) 1,000 mls @ 125 mls/hr IV .Q8H [facility] Last Admin: 12/31/16 18:58 Dose: 125 mls/hr Meropenem 1g/NS 100mL IVPB (Meropenem 1g/Ns 100ml Ivpb) 1 gm in 100 mls @ 100 mls/hr IVPB Q8 MIKEY PRN Reason: Protocol Stop: 01/10/17 08:10 Insulin Human Lispro (Humalog Med) 0 units SC ACHS IMKEY PRN Reason: Protocol Last Admin: 12/31/16 22:17 Dose: Not Given Levalbuterol HCl (Xopenex) 0.63 mg IH [id number] [facility] Last Admin: 01/01/17 07:48 Dose: 0.63 mg Montelukast Sodium (Singulair) 10 mg PO QPM [facility] Last Admin: 12/31/16 17:45 Dose: 10 mg Non-Formulary Medication (Lurasidone Hcl [Latuda]) 60 mg PO QPM [facility] Last Admin: 12/31/16 18:58 Dose: Not Given Ondansetron HCl (Zofran Inj) 4 mg IVP Q4H PRN PRN Reason: Nausea/Vomiting Pantoprazole Sodium (Protonix Inj) 40 mg IVP Q12 [facility] Last Admin: 12/31/16 21:42 Dose: 40 mg Tamsulosin HCl (Flomax) 0.4 mg PO DAILY [facility] Last Admin: 12/31/16 10:39 Dose: 0.4 mg Physical Exam - Constitutional Appears: Well (ABD WALL WOUND IS CLEAN) - Head Exam Head Exam: ATRAUMATIC, NORMAL INSPECTION, NORMOCEPHALIC - Eye Exam Eye Exam: EOMI, Normal appearance, PERRL Pupil Exam: NORMAL ACCOMODATION, PERRL - ENT Exam ENT Exam: Mucous Membranes Moist, Normal Exam - Neck Exam Neck exam: Positive for: Normal Inspection - Respiratory Exam Respiratory Exam: Clear to Auscultation Bilateral, NORMAL BREATHING PATTERN - Cardiovascular Exam Cardiovascular Exam: REGULAR RHYTHM - GI/Abdominal Exam GI & Abdominal Exam: Normal Bowel Sounds, Soft. absent: Tenderness - Rectal Exam Rectal Exam: NORMAL INSPECTION - Exam Exam: Circumcision, NORMAL INSPECTION External exam: NORMAL EXTERNAL EXAM Speculum exam: NORMAL SPECULUM EXAM Bimanual exam: NORMAL BIMANUAL EXAM - Extremities Exam Extremities exam: Positive for: normal inspection - Back Exam Back exam: NORMAL INSPECTION - Neurological Exam Neurological exam: Alert, CN II-XII Intact, Normal Gait, Oriented x3, Reflexes Normal - Psychiatric Exam Psychiatric exam: Normal Affect, Normal Mood - Skin Skin Exam: Dry, Intact, Normal Color, Warm Results - Vital Signs Recent Vital Signs: Last Vital Signs Temp 99.0 F 01/01/17 05:33 Pulse 70 01/01/17 05:33 Resp 20 01/01/17 05:33 BP 153/80 H 01/01/17 05:33 Pulse Ox 96 12/31/16 16:00 - Labs Result Diagrams: 12/31/16 19:45 12/31/16 07:15 Labs: Laboratory Results - last 24 hr 12/31/16 12/31/16 12/31/16 07:37 08:35 11:48 WBC RBC Hgb Hct MCV MCH MCHC RDW Plt Count MPV PT INR APTT POC Glucose (mg/dL) 172 H 249 H Blood Type A NEGATIVE Antibody Screen Negative Crossmatch See Detail BBK History Checked Patient has bt 12/31/16 12/31/16 12/31/16 12:52 16:18 19:45 WBC 6.0 RBC 3.10 L Hgb 9.1 L Hct 26.8 L MCV 86.5 MCH 29.4 MCHC 34.0 RDW 15.0 H Plt Count 162 MPV 11.1 H PT INR APTT 27.3 POC Glucose (mg/dL) 140 H Blood Type Antibody Screen Crossmatch BBK History Checked 12/31/16 12/31/16 01/01/17 19:45 21:30 07:33 WBC RBC Hgb Hct MCV MCH MCHC RDW Plt Count MPV PT 12.3 H INR 1.14 H APTT 28.7 POC Glucose (mg/dL) 147 H 158 H Blood Type Antibody Screen Crossmatch BBK History Checked Assessment & Plan (1) Sepsis Status: Acute (2) Healthcare-associated pneumonia Status: Acute (3) S/P right hemicolectomy Status: Acute - Assessment and Plan (Free Text) Plan: MERR/DOXY CK PROCAL CK CASTILLO CULTU - Date & Time Date: 01/01/17 Time: 07:45
[2017-01-01] MEDS: Piperacillin/Tazobact 3.375 gm 100 ML IVPB SCH (08:16)
[2017-01-01] MEDS: Insulin Lispro (humaLOG) MEDIUM Coverage SC SCH ×2 (08:36→12:24)
[2017-01-01 08:55] LABS: ADD MANUAL DIFF? NO
[2017-01-01 09:03] LABS: BASO # 0.01 K/mm3 (0.0-2.0); BASO % 0.1 % (0.0-3.0); EOS # 0.1 (0.0-0.7); EOS % 0.9 % (1.5-5.0); GRAN # 5.02 (1.4-6.5); GRAN % 71.9 % (50.0-68.0); HEMATOCRIT 31.6 % (42.0-52.0); LYMPH # 1.3 (1.2-3.4); LYMPH % 18.8 % (22.0-35.0); MEAN CELL VOLUME 86.8 fL (80.0-105.0); MEAN CORPUSCULAR HEMOGLOBIN 28.3 pg (25.0-35.0); MEAN CORPUSCULAR HGB CONC 32.6 g/dl (31.0-37.0); MEAN PLATELET VOLUME 10.8 fl (7.0-11.0); MONO # 0.6 (0.1-0.6); MONO % 8.3 % (1.0-6.0); PLATELET COUNT 151 10^3/uL (120.0-450.0); RED CELL DISTRIBUTION WIDTH 14.9 % (11.5-14.5)
[2017-01-01 09:08] LABS: ALKALINE PHOSPHATASE 57 U/L (38-133); ALT/SGPT 37 U/L (7-56); AST/SGOT 28 U/L (15-59); BILIRUBIN,DIRECT 0.4 mg/dL (0.0-0.4); BILIRUBIN,TOTAL 1.4 mg/dL (0.2-1.3); BLOOD UREA NITROGEN 10 mg/dL (7-21); CALCIUM 8.2 mg/dL (8.4-10.5); CARBON DIOXIDE 26 mmol/L (21-33); CHLORIDE 102 mmol/L (98-107); GFR AFRICAN-AMERICAN > 60; GLUCOSE,RANDOM 156 mg/dL (70-110); MAGNESIUM 1.5 mg/dL (1.7-2.2); POTASSIUM 3.1 mmol/L (3.6-5.0); SODIUM 136 mmol/L (132-148); TOTAL PROTEIN 6.3 g/dL (5.8-8.3)
[2017-01-01] MEDS ORDERED: Magnesium Sulfate 1 gm in D5W 1 GM/100 ML BAG IVPB ONE (09:26)
[2017-01-01 10:04] VITALS: RESP 19; O2SAT 99
[2017-01-01] MEDS ORDERED: Magnesium Sulfate 2 GM in Sodium Chloride 0.9% 100 ML IVPB ONE (11:27)
[2017-01-01] MEDS ORDERED: Pneumococcal 23-Valent Vaccine IM ONE (12:53)
[2017-01-01] MEDS ORDERED: Potassium Chloride 20 mEq ER Tab PO ONE (14:00)
--- NOTE | 2017-01-26 00:49 | PN ---
DATE OF SERVICE: 12/30/2016 LOCATION: The patient is seen in room 360. SUBJECTIVE: The patient is seen lying in the bed. The patient is comfortable. . PHYSICAL EXAMINATION VITAL SIGNS: T-max 101.3 down to 99.8, heart rate 104, 94 and 98. Blood pressure is 142/89 and 149/45, respirations 18 and O2 sat is 95% to 93%. HEAD: Normocephalic and atraumatic. HEENT: Shows pinkish pale conjunctivae, anicteric sclerae, dry oral mucosa. NECK: No neck rigidity. CHEST: Symmetrical. LUNGS: Shows occasional rhonchi. ABDOMEN: Protuberant, positive abdominal binder. GENITALIA: Male. RECTAL Deferred. EXTREMITIES: Show no pitting edema. No calf tenderness. No Marlyn's signs. NEUROLOGIC: The patient is alert, awake, oriented x3. Cranial nerve II through XII intact. Gait examination is not tested. MUSCULOSKELETAL: Shows an elevated body mass index of 33. DIAGNOSTICS: On 12/30/2016, WBC has gone up to 13.5, hemoglobin and hematocrit 10.1 and 30.7, platelet 212, granulocytes 82% segs. Chemistry from 12/30/2016 shows, sodium 139, potassium 3.8, chloride 106, CO2 of 21, anion gap 16, BUN 27, creatinine 1.1, GFR greater than 60, glucose 117, lactic acid 1.5, PSA is negative at 1.8, procalcitonin level is negative at 0.38. Urine pH 6.0, specific gravity 1.030, urine protein 30, urine small blood traced granulocytes. Chest x-ray was done on 12/30/2016, which is reviewed. Chest x-ray is also noted. IMPRESSION: 1. Postoperative fever. 2. Tachycardia. 3. Transient hypoxemia with history of chronic obstructive pulmonary disease. 4. Leukocytosis with granulocytosis. 5. Normocytic anemia. 6. Postoperative fever and leukocytosis. 7. Status post acute kidney injury. 8. Prerenal kidney injury. 9. Hyperuricemia. 10. Proteinuria microscopic hematuria. 11. Bibasilar atelectasis. 12. Left rib fracture. 13. Bilateral acromioclavicular joint arthritis. 14. Questionable incomplete left bundle-branch block and left anterior hemiblock. 15. Status post extended right hemicolectomy for transverse colon sessile polyp and incarcerated incisional hernia and dense intra abdominal adhesions. 16. History of recurrent sessile transverse colon polyp with attempted endoscopic mucosal resection, unsuccessful. POST OPERATIVE INTRA PERITONEAL HEMORRHAGE POST OPERATIVE ANEMIA S/P EXTENDED RIGHT HEMICOLECTOMY TRANSVERSE COLON SESSILE POLYP INCARCERATED INCISIONAL HERNIA DENSE INTRA ABDOMINAL ADHESIONS COPD MICRSCOPIC HEMATURIA PROTEINURIA SHELL MDD SCHIZOPHRENIA POST OPERATIVE ILEUS OBESITY DJD SHOULDERS JOINTS HTN TACHYCARDIA LAHB LBBB T2DM BIBASILAR ATELACTASIS [facility] PNEUMONIA LEUCOCYTOSIS GRANULOCYTOSIS HYPOKALEMIA S/P KEYONNA HYPERURICEMIA ??SEPSIS VS SIRS PLAN: At this time, the patient is to be continued on therapeutic intervention as per MAR. The patient's further management will be dependent upon the patient's clinical condition, hemodynamics status, and as per the patient's response to therapeutic intervention as per patient's diagnostic test results and as per recommendation by surgery and medical team. Dictated and electronically signed, not read. Signing off Get Hutson MD Get Hutson MD YOLANDA
--- NOTE | 2017-01-26 05:10 | CON ---
DATE: 12/28/2016 The patient was requested to be seen by Dr. Walters for medical management. The patient was seen in room #360, bed #2 after surgery. The patient was seen in the office few days ago for surgical clearance. The patient was seen in the room after the patient underwent extended right hemicolectomy, primary incisional hernia repair and lysis of adhesion. The patient was seen lying in the bed. CODE STATUS: Full code. LIVING WILL/ADVANCE DIRECTIVE: None. ALLERGIES: None. HEIGHT: 5 feet 6 inches. BMI: 33. HOME MEDICATIONS: Metformin 1000 mg twice a day, Cardizem CD 240 mg daily, Amaryl 4 mg twice a day, Advair Diskus 250/50 twice a day, Singulair 10 mg daily, magnesium oxide 400 mg twice a day, Latuda 60 mg daily, MiraLax 17 g p.r.n., Prilosec 40 mg daily, Lipitor 20 mg daily, Xanax 0.5 at bedtime, Ecotrin 81 mg daily, nebulizer treatment, Flomax 0.4 mg daily and Protonix 40 mg daily. SOCIAL HISTORY: Positive for former smoker. Positive for occasional alcohol. PAST MEDICAL AND SURGICAL HISTORY: History of hypertension, history of diabetes mellitus, history of chronic obstructive pulmonary disease, history of questionable pulmonary nodule, history of obesity, history of constipation, history of gastroesophageal reflux, history of anxiety and depression, history of dyslipidemia, history of prostatic hypertrophy, history of hypomagnesemia, history of questionable silent RI many years ago with a negative stress test, history of colonoscopy and endoscopy. The patient has a history of colonic polyp, history of rib fracture, history of intentional tremors, history of social alcohol use and history of former smoker. The patient's past medical history is significant for supraglottic larynx soft tissue thickening and narrowing for which the patient was referred to ears, nose and throat. The patient also has a history of pharyngitis. The patient's past medical history is significant for centrilobular emphysema, history of atelectasis, history of left upper lobe nodule, history of pulmonary nodule, history of degenerative joint disease of the cervical spine, history of kyphosis and history of prominent tonsils. The patient's past medical history is significant for proteinuria, history of renal cyst, history of fatty liver and history of hepatic steatosis. The patient's past medical history is significant for history of chronic gastritis, history of hyperplastic gastric polyp, history of transverse colon polyp with focal adenomatous changes and tubular adenoma of the ascending colon. The patient's past medical history is also significant for history of transverse colon, polypoid lesion, history of rectal polyp, tubular adenoma and hyperplastic polyp, status post polypectomy. The patient's past medical history is also significant for transverse colon polyp and tubular adenoma. The patient's past medical history is also significant for left ventricular ejection fraction of 61% and history of morbid obesity. Past medical history is also significant for history of incomplete right bundle branch block versus right ventricular conduction delay and history of left anterior hemiblock. The patient's past medical history is also significant for history of colonoscopy, history of therapeutic procedure for colon polyp, history of transverse colon carpet-like polyp with Mceknna classification *------* and history of internal hemorrhoids. The patient's past medical history is also significant for recurrent transverse colon polyp, Mckenna classification IIB; history of rectal polyp, history of diverticulosis and history of internal hemorrhoids. The patient's past medical history is also significant for questionable noncompliance. PHYSICAL EXAMINATION: GENERAL: The patient was seen in the room in room #360. VITAL SIGNS: T-max 98.8 to 98.7. The patient's heart rate was 66 to 74. Blood pressure 154/78, 152/84, 146/77 and 143/86. Respirations 20. O2 saturation 98% to 95%. HEENT: Head; normocephalic and atraumatic. HEENT examination shows pink conjunctivae, anicteric sclerae. No oropharyngeal lesion. NECK: No neck rigidity. CHEST: Kyphosis. LUNGS: Show no rales, crackles or wheezing. Occasional rhonchi. CARDIOVASCULAR: S1 and S2. Regular rhythm. ABDOMEN: Protuberant with positive abdominal binder. Positive surgical scar. GENITALIA: Male. RECTAL: Deferred. EXTREMITIES: Show no pitting edema, no calf tenderness and no Marlyn's signs. NEUROLOGIC: The patient is alert, awake and responsive. MUSCULOSKELETAL: Shows a body mass index of 33. Positive Flores catheter noted. VASCULAR: Palpable pulses. DIAGNOSTICS: WBC 8.0, hemoglobin and hematocrit 14.1 and 41.8, platelets 173 and granulocytes 73. Sodium 141, potassium 3.9, chloride 103, CO2 of 24, anion gap 18, BUN 13, creatinine 1.0, GFR greater than 60, glucose 142 and calcium 9.6. Troponin is negative at 0.01. IMPRESSION: 1. Status post extended right hemicolectomy. 2. Transverse colon with an incarcerated incisional hernia and dense intraabdominal adhesions. 3. Hypertension. 4. Granulocytosis. 5. History of chronic obstructive pulmonary disease. 6. Hyperglycemia. 7. Morbid obesity. 8. History of anxiety and depression. 9. History of transverse colon sessile polyp with attempted endoscopic mucosal resection, unsuccessful. PLAN: At this time, the patient is to be admitted by surgery for postop care. The patient will be followed closely with surgical service. The patient has been started on IV fluids. The patient has been started on GI and DVT prophylaxis. The patient has been resumed on his nebulizer medication. The patient is also to be continued on all the medications as per the MAR. The patient's further management will be dependent upon the patient's clinical condition, hemodynamic status, as per the patient's response to therapeutic intervention, as per the patient's diagnostic test results and as per recommendation by all the physicians involved in the care of the patient. At present, the patient is to be continued on above therapeutic intervention with close surgical and medicine followup. DICTATED AND ELECTRONICALLY SIGNED NOT READ. Get Hutson MD YOLANDA
== END 2017-01-01 14:02 | DRG 329 ==
LOC: SDAINP 08:25 → EDSTATUS 10:30 → 3RNO 15:44
PROVIDERS: ADMIT General Practice; ATTEND General Practice
PROC: 3E0F7GC Introduction of Other Therapeutic Substance into Respiratory Tract, Via Natural or Artificial Opening (ICD-10-PCS; 2016-12-28)
PROC: 0DTF0ZZ Resection of Right Large Intestine, Open Approach (ICD-10-PCS; principal; 2016-12-28 10:30)
PROC: 0DN80ZZ Release Small Intestine, Open Approach (ICD-10-PCS; 2016-12-28 10:30)
PROC: 0WQF0ZZ Repair Abdominal Wall, Open Approach (ICD-10-PCS; 2016-12-28 10:30)
PROC: 30233N1 Transfusion of Nonautologous Red Blood Cells into Peripheral Vein, Percutaneous Approach (ICD-10-PCS; 2016-12-31)
DX: D12.3 Benign neoplasm of transverse colon (principal); K66.1 Hemoperitoneum; J18.9 Pneumonia, unspecified organism; K56.7 Ileus, unspecified; F20.9 Schizophrenia, unspecified; J44.0 Chronic obstructive pulmonary disease with (acute) lower respiratory infection; E66.9 Obesity, unspecified; K91.89 Other postprocedural complications and disorders of digestive system; K43.0 Incisional hernia with obstruction, without gangrene; E11.9 Type 2 diabetes mellitus without complications; I10 Essential (primary) hypertension; D64.9 Anemia, unspecified; I44.7 Left bundle-branch block, unspecified; K66.0 Peritoneal adhesions (postprocedural) (postinfection); M19.012 Primary osteoarthritis, left shoulder; M19.011 Primary osteoarthritis, right shoulder; E87.6 Hypokalemia; Y95 Nosocomial condition; F32.9 Major depressive disorder, single episode, unspecified; E55.9 Vitamin D deficiency, unspecified; K57.30 Diverticulosis of large intestine without perforation or abscess without bleeding; Z68.33 Body mass index [BMI] 33.0-33.9, adult

== ENCOUNTER 2017-01-01 14:04 | Inpatient (IN) | payer OTHER ==
[2017-01-01 15:01] VITALS: BMI 32.9
[2017-01-01] MEDS ORDERED: HYDROmorphone 1 mg/ml ISec IVP PRN (15:21)
--- NOTE | 2017-01-01 15:23 | CP.PCM.CON ---
History of Present Illness - History of Present Illness History of Present Illness: Surgery: Dr. aWlters HPI: Patient is a 76 y/o male who is s/p extended right jessika-colectomy for large colon polyp in right colon found on colonoscopy. Patient underwent surgery on 12/28/16. Patient tolerated procedure well and post-operative course has been uncomplicated. Patient had nonbloody normal bowel movement yesterday and was subsequently started on regular diet. Patient currently with some pain in the abdomen around incision but otherwise feeling well. Patient currently admitted to TCU for post-operative rehab. PMH: Parkinson's PSH: right hemicolectomy Review of Systems - Review of Systems All systems: reviewed and no additional remarkable complaints except Review of Systems: unless stated in HPI Past Patient History - Past Medical History & Family History Past Medical History?: Yes - Past Social History Smoking Status: Never Smoked - CARDIAC Hx Cardiac Disorders: Yes Hx Hypercholesterolemia: Yes Hx Hypertension: Yes - PULMONARY Hx Respiratory Disorders: Yes Hx Asthma: Yes - NEUROLOGICAL Hx Paralysis: No - HEMATOLOGICAL/ONCOLOGICAL Hx Blood Disorders: No Hx Anemia: Yes - MUSCULOSKELETAL/RHEUMATOLOGICAL Hx Falls: No - GASTROINTESTINAL Hx Gastrointestinal Disorders: Yes - GENITOURINARY/GYNECOLOGICAL Hx Genitourinary Disorders: No - PSYCHIATRIC Hx Emotional Abuse: No Hx Physical Abuse: No - SURGICAL HISTORY Hx Surgeries: Yes - ANESTHESIA Hx Anesthesia Reactions: No Hx Malignant Hyperthermia: No Meds Allergies/Adverse Reactions: Allergies Allergy/AdvReac Type Severity Reaction Status Date / Time No Known Allergies Allergy Verified 09/21/16 14:47 Physical Exam - Constitutional Appears: Non-toxic, No Acute Distress, Chronically Ill - Head Exam Head Exam: ATRAUMATIC, NORMOCEPHALIC - Eye Exam Eye Exam: EOMI - ENT Exam ENT Exam: Mucous Membranes Moist - Respiratory Exam Respiratory Exam: NORMAL BREATHING PATTERN. absent: Respiratory Distress - Cardiovascular Exam Cardiovascular Exam: REGULAR RHYTHM. absent: Tachycardia - GI/Abdominal Exam GI & Abdominal Exam: Soft, Tenderness (javier-incisional ). absent: Distended, Guarding, Rebound, Rigid Additional comments: midline incision closed w/ anuj, CDI - Extremities Exam Extremities exam: Positive for: normal inspection. Negative for: calf tenderness - Neurological Exam Neurological exam: Alert, Oriented x3 - Psychiatric Exam Psychiatric exam: Normal Affect, Normal Mood - Skin Skin Exam: Normal Color, Warm Assessment & Plan - Assessment and Plan (Free Text) Assessment: 76 y/o male s/p right hemicolectomy POD4 Plan: -physical therapy -medical management per primary -encourage OOB and IS use -cont DVT prophylaxis -abdominal binder if ambulatory -AE hose stockings -cont reg diet -d/w Dr. Romeo Graham PGY1
[2017-01-01] MEDS ORDERED: HYDROmorphone 0.5 mg/0.5 ml ISec IVP PRN (15:32)
[2017-01-01] MEDS ORDERED: LURASIDONE HCL 60 MG PO SCH (18:00)
[2017-01-01] MEDS: diltiaZEM 240 mg/24 Hours CD Cap PO SCH (18:17)
[2017-01-01] MEDS: Insulin Lispro (humaLOG) MEDIUM Coverage SC SCH ×2 (18:23→21:47)
[2017-01-01] MEDS: Acetylcysteine 20% Inhal Soln (4ml) IH SCH (20:59)
[2017-01-01] MEDS: Levalbuterol 0.63 MG/3 ML Inhal Soln UD IH SCH (20:59)
[2017-01-01] MEDS: Meropenem 1g/NS 100mL IVPB 1 GM/100 ML PIGGYBACK IVPB SCH (21:48)
[2017-01-02] MEDS: Levalbuterol 0.63 MG/3 ML Inhal Soln UD IH SCH ×4 (02:00→20:59)
[2017-01-02] MEDS: Acetylcysteine 20% Inhal Soln (4ml) IH SCH ×4 (02:00→20:59)
[2017-01-02] MEDS: Meropenem 1g/NS 100mL IVPB 1 GM/100 ML PIGGYBACK IVPB SCH ×2 (05:17→21:29)
[2017-01-02 06:35] LABS: BASO # 0.01 K/mm3 (0.0-2.0); BASO % 0.1 % (0.0-3.0); EOS # 0.1 (0.0-0.7); EOS % 0.9 % (1.5-5.0); GRAN % 80.7 % (50.0-68.0); HEMOGLOBIN 10.7 gm/dL (14.0-18.0); LYMPH # 0.9 (1.2-3.4); LYMPH % 10.2 % (22.0-35.0); MEAN CELL VOLUME 86.2 fL (80.0-105.0); MEAN CORPUSCULAR HGB CONC 33.6 g/dl (31.0-37.0); MEAN PLATELET VOLUME 10.1 fl (7.0-11.0); MONO # 0.7 (0.1-0.6); MONO % 8.1 % (1.0-6.0); PLATELET COUNT 151 10^3/uL (120.0-450.0); RBC 3.69 10^6/uL (3.5-6.1); RED CELL DISTRIBUTION WIDTH 14.9 % (11.5-14.5); WHITE BLOOD COUNT 8.6 10^3/ul (4.5-11.0)
[2017-01-02 06:44] LABS: ALBUMIN 3.2 g/dL (3.0-4.8); ALT/SGPT 34 U/L (7-56); AST/SGOT 27 U/L (15-59); BILIRUBIN,DIRECT 0.4 mg/dL (0.0-0.4); BLOOD UREA NITROGEN 9 mg/dL (7-21); CALCIUM 8.4 mg/dL (8.4-10.5); GFR AFRICAN-AMERICAN > 60; GFR NON-AFRICAN AMERICAN > 60; MAGNESIUM 1.6 mg/dL (1.7-2.2)
[2017-01-02] MEDS: Insulin Lispro (humaLOG) MEDIUM Coverage SC SCH ×3 (06:53→22:00)
--- NOTE | 2017-01-02 07:58 | CP.PCM.PN ---
Subjective - Date & Time of Evaluation Date of Evaluation: 01/02/17 Time of Evaluation: 06:50 - Subjective Subjective: General Surgery Dr. Zaman (covering Dr. Walters) Pt S&E @bedside. NAEO. tolerating regular diet. minimal pain controlled w/ medication. Denies N/V, D/C. Objective - Vital Signs/Intake and Output Vital Signs (last 24 hours): Temp Pulse Resp BP Pulse Ox 98.1 F 73 21 165/92 H 98 01/02/17 05:29 01/02/17 05:29 01/02/17 05:29 01/02/17 05:29 01/02/17 05:29 - Medications Medications: Current Medications Acetaminophen (Tylenol 325mg Tab) 650 mg PO Q6H PRN; Protocol PRN Reason: Fever >100.4 F Last Admin: 01/01/17 16:40 Dose: 650 mg Acetylcysteine (Acetylcysteine 20%) 4 ml IH [id number] MIKEY PRN Reason: Protocol Last Admin: 01/02/17 07:27 Dose: 4 ml Alprazolam (Xanax) 0.5 mg PO HS MIKEY PRN Reason: Protocol Last Admin: 01/01/17 21:49 Dose: 0.5 mg Diltiazem HCl (Cardizem Cd) 240 mg PO QPM [facility]KEY PRN Reason: Protocol Last Admin: 01/01/17 18:17 Dose: 240 mg Doxycycline Hyclate (Doryx) 100 mg PO Q12 MIKEY PRN Reason: Protocol Last Admin: 01/01/17 21:46 Dose: 100 mg Famotidine (Pepcid) 40 mg PO HS MIKEY Last Admin: 01/01/17 21:49 Dose: 40 mg Heparin Sodium (Porcine) (Heparin) 5,000 units SC 0600,1800 MIKEY PRN Reason: Protocol Last Admin: 01/02/17 05:17 Dose: 5,000 units Hydromorphone HCl (Dilaudid) 0.5 mg IVP Q4H PRN PRN Reason: Pain, severe (8-10) Meropenem 1g/NS 100mL IVPB (Meropenem 1g/Ns 100ml Ivpb) 1 gm in 100 mls @ 100 mls/hr IVPB Q8 MIEKY PRN Reason: Protocol Stop: 01/04/17 06:59 Last Admin: 01/02/17 05:17 Dose: 100 mls/hr Ibuprofen (Motrin Tab) 600 mg PO Q6H PRN PRN Reason: Pain, Mild (1-3) Last Admin: 01/02/17 06:56 Dose: 600 mg Insulin Human Lispro (Humalog Med) 0 units SC ACHS MIKEY PRN Reason: Protocol Last Admin: 01/02/17 06:53 Dose: 3 units Levalbuterol HCl (Xopenex) 0.63 mg IH [id number] [facility] Last Admin: 01/02/17 07:27 Dose: 0.63 mg Montelukast Sodium (Singulair) 10 mg PO QPM [facility]KEY PRN Reason: Protocol Last Admin: 01/01/17 18:27 Dose: 10 mg Lurasidone Hcl [ Latuda] 60 Mg (Home Med) 60 mg PO QPM [facility]KEY Ondansetron HCl (Zofran Inj) 4 mg IVP Q4H PRN PRN Reason: Nausea/Vomiting Tamsulosin HCl (Flomax) 0.4 mg PO 1800 MIKEY PRN Reason: Protocol Tramadol HCl (Ultram) 50 mg PO Q6 PRN PRN Reason: Pain, moderate (4-7) Last Admin: 01/02/17 02:10 Dose: 50 mg - Labs Labs: 01/02/17 06:20 01/02/17 06:20 - Constitutional Appears: Non-toxic, No Acute Distress - Head Exam Head Exam: NORMAL INSPECTION - Eye Exam Eye Exam: Normal appearance - ENT Exam ENT Exam: Mucous Membranes Moist - Respiratory Exam Respiratory Exam: NORMAL BREATHING PATTERN. absent: Accessory Muscle Use, Respiratory Distress - Cardiovascular Exam Cardiovascular Exam: absent: Bradycardia, Tachycardia - GI/Abdominal Exam GI & Abdominal Exam: Soft, Tenderness (minimal TTPperi-incisional). absent: Distended, Guarding, Rigid Additional comments: dressings c/d/i. abd binder in place - Extremities Exam Extremities Exam: Normal Inspection - Neurological Exam Neurological Exam: Alert, Awake, Oriented x3 - Psychiatric Exam Psychiatric exam: Normal Affect, Normal Mood - Skin Skin Exam: Dry, Normal Color, Warm Assessment and Plan - Assessment and Plan (Free Text) Assessment: 76 y/o M POD#5 s/p extended right hemicolectomy - cont PT - cont medical management per primary - encourage OOB/IS use - cont reg diet - GI/DVT PPx Pt discussed w/ Dr. Austyn Charles DO PGY2
[2017-01-02] MEDS ORDERED: Potassium Chloride 40 mEq/30 ml LIQ UD PO ONE (08:17)
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
[2017-01-02] MEDS: Magnesium Sulfate 2 GM in Sodium Chloride 0.9% 100 ML IVPB SCH ×2 (10:31→12:23)
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
[2017-01-03] MEDS: Levalbuterol 0.63 MG/3 ML Inhal Soln UD IH SCH ×4 (01:41→19:53)
[2017-01-03] MEDS: Acetylcysteine 20% Inhal Soln (4ml) IH SCH ×4 (01:41→19:53)
[2017-01-03] MEDS: Pantoprazole 40 mg EC Tab PO SCH ×2 (06:21→15:36)
[2017-01-03] MEDS: Meropenem 1g/NS 100mL IVPB 1 GM/100 ML PIGGYBACK IVPB SCH (06:23)
[2017-01-03] MEDS: Insulin Lispro (humaLOG) MEDIUM Coverage SC SCH ×4 (06:31→22:00)
--- NOTE | 2017-01-03 07:08 | CP.PCM.PN ---
Subjective - Date & Time of Evaluation Date of Evaluation: 01/03/17 Time of Evaluation: 06:45 - Subjective Subjective: General Surgery Dr. Zaman (covering Dr. Siddiqui) Pt S&E @bedside. AMADO. denies N/V, F/C, D/C. tolerating diet. Objective - Vital Signs/Intake and Output Vital Signs (last 24 hours): Temp Pulse Resp BP Pulse Ox 98.1 F 73 21 165/92 H 98 01/02/17 05:29 01/02/17 05:29 01/02/17 05:29 01/02/17 05:29 01/02/17 05:29 - Medications Medications: Current Medications Acetaminophen (Tylenol 325mg Tab) 650 mg PO Q6H PRN; Protocol PRN Reason: SEE DOSE INSTRUCTIONS Acetylcysteine (Acetylcysteine 20%) 4 ml IH [id number] [facility]KEY PRN Reason: Protocol Last Admin: 01/03/17 01:41 Dose: Not Given Alprazolam (Xanax) 0.5 mg PO HS MIKEY PRN Reason: Protocol Last Admin: 01/02/17 21:31 Dose: 0.5 mg Diltiazem HCl (Cardizem Cd) 240 mg PO QPM [facility]KEY PRN Reason: Protocol Last Admin: 01/01/17 18:17 Dose: 240 mg Doxycycline Hyclate (Doryx) 100 mg PO Q12 [facility] PRN Reason: Protocol Last Admin: 01/02/17 21:29 Dose: 100 mg Heparin Sodium (Porcine) (Heparin) 5,000 units SC 0600,1800 [facility] PRN Reason: Protocol Last Admin: 01/03/17 06:22 Dose: 5,000 units Hydromorphone HCl (Dilaudid) 0.5 mg IVP Q4H PRN PRN Reason: Pain, severe (8-10) Meropenem 1g/NS 100mL IVPB (Meropenem 1g/Ns 100ml Ivpb) 1 gm in 100 mls @ 100 mls/hr IVPB Q8 MIKEY PRN Reason: Protocol Stop: 01/04/17 06:59 Last Admin: 01/03/17 06:23 Dose: 100 mls/hr Insulin Human Lispro (Humalog Med) 0 units SC ACHS [facility]KEY PRN Reason: Protocol Last Admin: 01/03/17 06:31 Dose: 1 units Levalbuterol HCl (Xopenex) 0.63 mg IH [id number] [facility] Last Admin: 01/03/17 01:41 Dose: Not Given Montelukast Sodium (Singulair) 10 mg PO QPM [facility]KEY PRN Reason: Protocol Last Admin: 01/01/17 18:27 Dose: 10 mg Lurasidone Hcl [ Latuda] 60 Mg (Home Med) 60 mg PO QPM [facility] Ondansetron HCl (Zofran Inj) 4 mg IVP Q4H PRN PRN Reason: Nausea/Vomiting Pantoprazole Sodium (Protonix Ec Tab) 40 mg PO 0600,1600 [facility] Last Admin: 01/03/17 06:21 Dose: 40 mg Tamsulosin HCl (Flomax) 0.4 mg PO 1800 [facility]KEY PRN Reason: Protocol - Labs Labs: 01/02/17 06:20 01/02/17 06:20 - Constitutional Appears: Non-toxic, No Acute Distress - Head Exam Head Exam: NORMAL INSPECTION - Eye Exam Eye Exam: Normal appearance - ENT Exam ENT Exam: Mucous Membranes Moist - Respiratory Exam Respiratory Exam: NORMAL BREATHING PATTERN. absent: Accessory Muscle Use, Respiratory Distress - Cardiovascular Exam Cardiovascular Exam: absent: Bradycardia, Tachycardia - GI/Abdominal Exam GI & Abdominal Exam: Distended (minimal), Soft, Tenderness (minimal TTP R side) . absent: Firm, Guarding, Rebound Additional comments: incision c/d/i, well approximated no induration, erythema - Extremities Exam Extremities Exam: Normal Inspection - Neurological Exam Neurological Exam: Alert, Awake, Oriented x3 - Psychiatric Exam Psychiatric exam: Normal Affect, Normal Mood - Skin Skin Exam: Dry, Normal Color, Warm Assessment and Plan - Assessment and Plan (Free Text) Assessment: 76 y/o M POD#6 s/p R hemicolectomy - pain management - encourage OOB to chair/ Amb/ IS use - cont medical management - GI/DVT PPx Pt discussed w/ Dr. Austyn Charles DO PGY2
[2017-01-03 07:14] LABS: BASO # 0.01 K/mm3 (0.0-2.0); BASO % 0.1 % (0.0-3.0); EOS # 0.1 (0.0-0.7); EOS % 0.9 % (1.5-5.0); GRAN # 8.46 (1.4-6.5); GRAN % 82.5 % (50.0-68.0); HEMOGLOBIN 10.6 gm/dL (14.0-18.0); LYMPH % 9.3 % (22.0-35.0); MEAN CELL VOLUME 87.9 fL (80.0-105.0); MEAN PLATELET VOLUME 10.5 fl (7.0-11.0); MONO # 0.7 (0.1-0.6); MONO % 7.2 % (1.0-6.0); PLATELET COUNT 177 10^3/uL (120.0-450.0); RBC 3.65 10^6/uL (3.5-6.1); RED CELL DISTRIBUTION WIDTH 15.3 % (11.5-14.5); WHITE BLOOD COUNT 10.3 10^3/ul (4.5-11.0)
[2017-01-03 07:26] LABS: ALBUMIN 3.3 g/dL (3.0-4.8); ALT/SGPT 32 U/L (7-56); AST/SGOT 32 U/L (15-59); BILIRUBIN,DIRECT 0.4 mg/dL (0.0-0.4); BLOOD UREA NITROGEN 14 mg/dL (7-21); CALCIUM 8.5 mg/dL (8.4-10.5); GFR AFRICAN-AMERICAN > 60; GFR NON-AFRICAN AMERICAN > 60; MAGNESIUM 1.9 mg/dL (1.7-2.2)
[2017-01-03] MEDS ORDERED: Potassium Chloride 20 mEq ER Tab PO ONE (08:25)
[2017-01-03] MEDS ORDERED: Magnesium Sulfate 2 GM in Sodium Chloride 0.9% 100 ML IVPB ONE (10:43)
--- NOTE | 2017-01-03 10:49 | CP.PCM.PN ---
Subjective - Date & Time of Evaluation Date of Evaluation: 01/03/17 Time of Evaluation: 09:00 - Subjective Subjective: low grade temp yesterday of 100.1 Objective - Vital Signs/Intake and Output Vital Signs (last 24 hours): Temp Pulse Resp BP Pulse Ox 98.1 F 73 21 165/92 H 98 01/02/17 05:29 01/02/17 05:29 01/02/17 05:29 01/02/17 05:29 01/02/17 05:29 - Medications Medications: Current Medications Acetaminophen (Tylenol 325mg Tab) 650 mg PO Q6H PRN; Protocol PRN Reason: SEE DOSE INSTRUCTIONS Acetylcysteine (Acetylcysteine 20%) 4 ml IH [id number] [facility]KEY PRN Reason: Protocol Last Admin: 01/03/17 07:12 Dose: 4 ml Alprazolam (Xanax) 0.5 mg PO HS [facility]KEY PRN Reason: Protocol Last Admin: 01/02/17 21:31 Dose: 0.5 mg Diltiazem HCl (Cardizem Cd) 240 mg PO QPM [facility] PRN Reason: Protocol Last Admin: 01/01/17 18:17 Dose: 240 mg Doxycycline Hyclate (Doryx) 100 mg PO Q12 [facility] PRN Reason: Protocol Last Admin: 01/03/17 09:20 Dose: 100 mg Heparin Sodium (Porcine) (Heparin) 5,000 units SC 0600,1800 [facility] PRN Reason: Protocol Last Admin: 01/03/17 06:22 Dose: 5,000 units Hydromorphone HCl (Dilaudid) 0.5 mg IVP Q4H PRN PRN Reason: Pain, severe (8-10) Meropenem 1g/NS 100mL IVPB (Meropenem 1g/Ns 100ml Ivpb) 1 gm in 100 mls @ 100 mls/hr IVPB Q8 [facility] PRN Reason: Protocol Stop: 01/04/17 06:59 Last Admin: 01/03/17 06:23 Dose: 100 mls/hr Magnesium Sulfate 2 gm/ Sodium (Chloride) 104 mls @ 102 mls/hr IVPB ONCE ONE Stop: 01/03/17 11:44 Insulin Human Lispro (Humalog Med) 0 units SC ACHS [facility]KEY PRN Reason: Protocol Last Admin: 01/03/17 06:31 Dose: 1 units Levalbuterol HCl (Xopenex) 0.63 mg IH [id number] [facility] Last Admin: 01/03/17 07:12 Dose: 0.63 mg Montelukast Sodium (Singulair) 10 mg PO QPM [facility]KEY PRN Reason: Protocol Last Admin: 01/01/17 18:27 Dose: 10 mg Lurasidone Hcl [ Latuda] 60 Mg (Home Med) 60 mg PO QPM [facility] Ondansetron HCl (Zofran Inj) 4 mg IVP Q4H PRN PRN Reason: Nausea/Vomiting Pantoprazole Sodium (Protonix Ec Tab) 40 mg PO 0600,1600 [facility] Last Admin: 01/03/17 06:21 Dose: 40 mg Potassium Chloride (Potassium Chloride Oral Soln) 40 meq PO Q1H [facility] Stop: 01/03/17 11:46 Tamsulosin HCl (Flomax) 0.4 mg PO 1800 [facility]KEY PRN Reason: Protocol - Labs Labs: 01/03/17 06:30 01/03/17 06:30 - Constitutional Appears: Non-toxic - Head Exam Head Exam: NORMAL INSPECTION Assessment and Plan (1) Healthcare-associated pneumonia Status: Acute (2) S/P right hemicolectomy Status: Acute (3) Sepsis Status: Acute - Assessment and Plan (Free Text) Plan: d/c merr follow temp
[2017-01-03] MEDS: Potassium Chloride 40 mEq/30 ml LIQ UD PO SCH ×2 (12:20→15:35)
--- NOTE | 2017-01-03 14:28 | CP.PCM.PN ---
Subjective - Date & Time of Evaluation Date of Evaluation: 01/03/17 Time of Evaluation: 14:00 - Subjective Subjective: SEEN AMBULATING IN THE ROOM C/O CONGESTION UNABLE TO EXPECTORATE PHELGM +BM Objective - Vital Signs/Intake and Output Vital Signs (last 24 hours): Temp Pulse Resp BP Pulse Ox 98.6 F 78 12 140/91 H 98 01/03/17 11:19 01/03/17 11:19 01/03/17 11:19 01/03/17 11:19 01/02/17 05:29 - Medications Medications: Current Medications Acetaminophen (Tylenol 325mg Tab) 650 mg PO Q6H PRN; Protocol PRN Reason: SEE DOSE INSTRUCTIONS Acetylcysteine (Acetylcysteine 20%) 4 ml IH [id number] MIKEY PRN Reason: Protocol Last Admin: 01/03/17 13:14 Dose: 4 ml Alprazolam (Xanax) 0.5 mg PO HS IMKEY PRN Reason: Protocol Last Admin: 01/02/17 21:31 Dose: 0.5 mg Diltiazem HCl (Cardizem Cd) 240 mg PO QPM [facility]KEY PRN Reason: Protocol Last Admin: 01/01/17 18:17 Dose: 240 mg Doxycycline Hyclate (Doryx) 100 mg PO Q12 [facility]KEY PRN Reason: Protocol Last Admin: 01/03/17 09:20 Dose: 100 mg Heparin Sodium (Porcine) (Heparin) 5,000 units SC 0600,1800 [facility] PRN Reason: Protocol Last Admin: 01/03/17 06:22 Dose: 5,000 units Hydromorphone HCl (Dilaudid) 0.5 mg IVP Q4H PRN PRN Reason: Pain, severe (8-10) Insulin Human Lispro (Humalog Med) 0 units SC ACHS MIKEY PRN Reason: Protocol Last Admin: 01/03/17 12:18 Dose: 1 units Levalbuterol HCl (Xopenex) 0.63 mg IH [id number] MIKEY Last Admin: 01/03/17 13:14 Dose: 0.63 mg Montelukast Sodium (Singulair) 10 mg PO QPM MIKEY PRN Reason: Protocol Last Admin: 01/01/17 18:27 Dose: 10 mg Lurasidone Hcl [ Latuda] 60 Mg (Home Med) 60 mg PO QPM MIKEY Ondansetron HCl (Zofran Inj) 4 mg IVP Q4H PRN PRN Reason: Nausea/Vomiting Pantoprazole Sodium (Protonix Ec Tab) 40 mg PO 0600,1600 [facility] Last Admin: 01/03/17 06:21 Dose: 40 mg Tamsulosin HCl (Flomax) 0.4 mg PO 1800 [facility] PRN Reason: Protocol - Labs Labs: 01/03/17 06:30 01/03/17 06:30 - Constitutional Appears: Well, No Acute Distress - Head Exam Head Exam: ATRAUMATIC, NORMAL INSPECTION, NORMOCEPHALIC - Eye Exam Eye Exam: EOMI, Normal appearance, PERRL Pupil Exam: NORMAL ACCOMODATION, PERRL - ENT Exam ENT Exam: Mucous Membranes Moist, Normal Exam - Neck Exam Neck Exam: Full ROM, Normal Inspection - Respiratory Exam Respiratory Exam: Rhonchi - Cardiovascular Exam Cardiovascular Exam: REGULAR RHYTHM, +S1, +S2 - GI/Abdominal Exam GI & Abdominal Exam: Distended, Soft, Normal Bowel Sounds Additional comments: +ABD.BINDER - Rectal Exam Rectal Exam: Deferred - Exam Exam: NORMAL INSPECTION - Extremities Exam Extremities Exam: Full ROM, Normal Capillary Refill, Normal Inspection - Back Exam Back Exam: Full ROM, NORMAL INSPECTION - Neurological Exam Neurological Exam: Alert, Awake, CN II-XII Intact, Normal Gait, Oriented x3 Neuro motor strength exam: Left Upper Extremity: 5, Right Upper Extremity: 5, Left Lower Extremity: 5, Right Lower Extremity: 5 - Psychiatric Exam Psychiatric exam: Normal Affect, Normal Mood - Additional Findings Additional findings: - Head Exam Head Exam: ATRAUMATIC, NORMAL INSPECTION, NORMOCEPHALIC - Eye Exam Eye Exam: EOMI, Normal appearance, PERRL Pupil Exam: NORMAL ACCOMODATION - ENT Exam ENT Exam: Mucous Membranes Moist, Normal Exam - Neck Exam Neck exam: Positive for: Normal Inspection - Cardiovascular Exam Cardiovascular Exam: RRR - GI/Abdominal Exam GI & Abdominal Exam: Normal Bowel Sounds, Soft Additional comments: + ABD.BINDER +SURGICAL SCAR - Exam Exam: NORMAL INSPECTION - Extremities Exam Extremities exam: Positive for: normal capillary refill, normal inspection, pedal pulses present - Psychiatric Exam Psychiatric exam: Normal Affect, Normal Mood - Additional Findings Additional findings: - Constitutional Appears: Well - Head Exam Head Exam: ATRAUMATIC, NORMAL INSPECTION, NORMOCEPHALIC - Eye Exam Eye Exam: EOMI, Normal appearance, PERRL - ENT Exam ENT Exam: Mucous Membranes Moist, Normal Exam - Neck Exam Neck Exam: Full ROM, Normal Inspection. absent: Lymphadenopathy - Respiratory Exam Respiratory Exam: Rhonchi - Cardiovascular Exam Cardiovascular Exam: Tachycardia - GI/Abdominal Exam GI & Abdominal Exam: Distended, Diminished Bowel Sounds, Hypoactive Bowel Sounds - Rectal Exam Rectal Exam: Deferred - Extremities Exam Extremities Exam: Full ROM, Normal Capillary Refill, Normal Inspection. absent : Joint Swelling, Pedal Edema - Back Exam Back Exam: NORMAL INSPECTION - Neurological Exam Neurological Exam: Alert, Awake, CN II-XII Intact, Normal Gait, Oriented x3 Neuro motor strength exam: Left Upper Extremity: 5, Right Upper Extremity: 5, Left Lower Extremity: 5, Right Lower Extremity: 5 Assessment and Plan - Assessment and Plan (Free Text) Assessment: FEVER DECONDITIONING GAIT DYSFUNCTION POST OPERATIVE INTRA PERITONEAL HEMORRHAGE POST OPERATIVE ANEMIA S/P EXTENDED RIGHT HEMICOLECTOMY TRANSVERSE COLON SESSILE POLYP INCARCERATED INCISIONAL HERNIA DENSE INTRA ABDOMINAL ADHESIONS COPD 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 SEPSIS. 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 SEPSIS. 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 DJD SHOULDERS JOINTS HTN TACHYCARDIA LAHB LBBB T2DM BIBASILAR ATELACTASIS [facility] PNEUMONIA LEUCOCYTOSIS GRANULOCYTOSIS HYPOKALEMIA S/P KEYONNA HYPERURICEMIA ??SEPSIS VS SIRS Plan: FEVER DECONDITIONING GAIT DYSFUNCTION POST OPERATIVE INTRA PERITONEAL HEMORRHAGE POST OPERATIVE ANEMIA S/P EXTENDED RIGHT HEMICOLECTOMY TRANSVERSE COLON SESSILE POLYP INCARCERATED INCISIONAL HERNIA DENSE INTRA ABDOMINAL ADHESIONS COPD 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 SEPSIS. S/P PRBC TRANSFUSION PLAN PER ORDERS ID $ SURGERY REC NOTED.
[2017-01-03] MEDS: Magnesium Oxide 400 mg Tab UD PO SCH (17:05)
[2017-01-03] MEDS: diltiaZEM 240 mg/24 Hours CD Cap PO SCH (18:03)
[2017-01-04] MEDS: Levalbuterol 0.63 MG/3 ML Inhal Soln UD IH SCH ×3 (01:59→13:06)
[2017-01-04] MEDS: Acetylcysteine 20% Inhal Soln (4ml) IH SCH ×3 (01:59→13:06)
[2017-01-04] MEDS: Pantoprazole 40 mg EC Tab PO SCH (05:48)
[2017-01-04] MEDS: Insulin Lispro (humaLOG) MEDIUM Coverage SC SCH ×2 (06:50→12:30)
[2017-01-04 07:02] LABS: BASO # 0.01 K/mm3 (0.0-2.0); BASO % 0.1 % (0.0-3.0); EOS # 0.1 (0.0-0.7); EOS % 0.7 % (1.5-5.0); GRAN # 7.94 (1.4-6.5); GRAN % 79.1 % (50.0-68.0); LYMPH # 1.2 (1.2-3.4); LYMPH % 12.3 % (22.0-35.0); MEAN CELL VOLUME 88.7 fL (80.0-105.0); MEAN CORPUSCULAR HEMOGLOBIN 28.8 pg (25.0-35.0); MEAN CORPUSCULAR HGB CONC 32.4 g/dl (31.0-37.0); MEAN PLATELET VOLUME 10.4 fl (7.0-11.0); MONO # 0.8 (0.1-0.6); MONO % 7.8 % (1.0-6.0); PLATELET COUNT 194 10^3/uL (120.0-450.0); RBC 3.82 10^6/uL (3.5-6.1); RED CELL DISTRIBUTION WIDTH 15.9 % (11.5-14.5)
[2017-01-04 07:21] LABS: ALB/GLOB RATIO 1.1 (1.1-1.8); ALBUMIN 3.5 g/dL (3.0-4.8); ALT/SGPT 31 U/L (7-56); AST/SGOT 41 U/L (15-59); BILIRUBIN,DIRECT 0.7 mg/dL (0.0-0.4); BLOOD UREA NITROGEN 16 mg/dL (7-21); CALCIUM 8.8 mg/dL (8.4-10.5); GFR AFRICAN-AMERICAN > 60; GFR NON-AFRICAN AMERICAN > 60; MAGNESIUM 1.7 mg/dL (1.7-2.2)
[2017-01-04] MEDS ORDERED: Potassium Chloride 20 mEq ER Tab PO SCH (08:00)
--- NOTE | 2017-01-04 09:00 | CP.PCM.PN ---
<Joel Moran - Last Filed: 01/04/17 12:43> Subjective - Date & Time of Evaluation Date of Evaluation: 01/04/17 Time of Evaluation: 07:30 - Subjective Subjective: Patient seen and examined at bedside. Today is TCU day 4. No acute events overnight. Patient was resting comfortably in bed. Admits to baseline abdominal tenderness, tolerating diet, and experiencing flatulence/having BMs. Denies fever, chills, nausea, vomiting, and blood per rectum. Objective - Vital Signs/Intake and Output Vital Signs (last 24 hours): Temp Pulse Resp BP Pulse Ox 98.6 F 78 12 123/86 98 01/03/17 11:19 01/03/17 11:19 01/03/17 11:19 01/03/17 18:03 01/02/17 05:29 - Medications Medications: Current Medications Acetaminophen (Tylenol 325mg Tab) 650 mg PO Q6H PRN; Protocol PRN Reason: SEE DOSE INSTRUCTIONS Acetylcysteine (Acetylcysteine 20%) 4 ml IH [id number] MIKEY PRN Reason: Protocol Last Admin: 01/04/17 07:11 Dose: 4 ml Alprazolam (Xanax) 0.5 mg PO HS MIKEY PRN Reason: Protocol Last Admin: 01/03/17 21:17 Dose: 0.5 mg Diltiazem HCl (Cardizem Cd) 240 mg PO QPM MIKEY PRN Reason: Protocol Last Admin: 01/03/17 18:03 Dose: 240 mg Doxycycline Hyclate (Doryx) 100 mg PO Q12 MIKEY PRN Reason: Protocol Last Admin: 01/03/17 21:17 Dose: 100 mg Heparin Sodium (Porcine) (Heparin) 5,000 units SC 0600,1800 [facility] PRN Reason: Protocol Last Admin: 01/04/17 05:48 Dose: 5,000 units Hydromorphone HCl (Dilaudid) 0.5 mg IVP Q4H PRN PRN Reason: Pain, severe (8-10) Last Admin: 01/03/17 17:06 Dose: 0.5 mg Insulin Human Lispro (Humalog Med) 0 units SC ACHS MIKEY PRN Reason: Protocol Last Admin: 01/04/17 06:50 Dose: 1 units Levalbuterol HCl (Xopenex) 0.63 mg IH [id number] MIKEY Last Admin: 01/04/17 07:11 Dose: 0.63 mg Magnesium Oxide (Mag-Ox) 400 mg PO BID [facility] Last Admin: 01/03/17 17:05 Dose: 400 mg Montelukast Sodium (Singulair) 10 mg PO QPM [facility] PRN Reason: Protocol Last Admin: 01/03/17 17:05 Dose: 10 mg Lurasidone Hcl [ Latuda] 60 Mg (Home Med) 60 mg PO QPM [facility] Last Admin: 01/03/17 17:05 Dose: Not Given Ondansetron HCl (Zofran Inj) 4 mg IVP Q4H PRN PRN Reason: Nausea/Vomiting Pantoprazole Sodium (Protonix Ec Tab) 40 mg PO 0600,1600 [facility] Last Admin: 01/04/17 05:48 Dose: 40 mg Potassium Chloride (K-Dur 20 Meq Er Tab) 20 meq PO 0800 [facility] Last Admin: 01/04/17 08:33 Dose: 20 meq Tamsulosin HCl (Flomax) 0.4 mg PO 1800 [facility] PRN Reason: Protocol Last Admin: 01/03/17 17:04 Dose: 0.4 mg - Labs Labs: 01/04/17 06:25 01/04/17 06:25 - Constitutional Appears: Well, Non-toxic, No Acute Distress - Head Exam Head Exam: ATRAUMATIC, NORMAL INSPECTION, NORMOCEPHALIC - Eye Exam Eye Exam: EOMI, Normal appearance. absent: Conjunctival injection, Scleral icterus Pupil Exam: absent: Irregular, Unequal - ENT Exam ENT Exam: Mucous Membranes Moist - Neck Exam Neck Exam: Full ROM - Respiratory Exam Respiratory Exam: Clear to Ausculation Bilateral, NORMAL BREATHING PATTERN. absent: Rales, Rhonchi, Wheezes - Cardiovascular Exam Cardiovascular Exam: REGULAR RHYTHM, RRR, +S1, +S2 - GI/Abdominal Exam GI & Abdominal Exam: Soft, Tenderness (mild diffuse tenderness), Normal Bowel Sounds. absent: Firm, Rigid Additional comments: Abdominal Binder in position - Extremities Exam Extremities Exam: Full ROM. absent: Calf Tenderness, Joint Swelling, Pedal Edema, Tenderness Additional comments: Bilateral UE tremulous at rest, decreased tremors with movement - Neurological Exam Neurological Exam: Alert, Awake Additional comments: patient is awake, alert, responds to verbal stimuli, follows commands appropriately, and moves bilateral UE and LE spontaneously - Psychiatric Exam Psychiatric exam: Normal Affect, Normal Mood - Skin Skin Exam: Normal Color, Warm Assessment and Plan - Assessment and Plan (Free Text) Assessment: This is a 76 yo M with PMH of Parkinson's, DM, COPD, transverse colon sessile polyp, HTN, and Schizophrenia who is POD #7 s/p R hemicolectomy/ incracerated hernia repair, and is being treated for suspected HCAP and sepsis. He is currently in the TCU for rehab while being treated for HCAP/sepsis. Plan: 1. S/p R hemicolectomy/incarcerated incisional hernia - transverse colon sessile polyp removed, experienced post-op intra-peritoneal hemorrhage - Hgb stable, 11.0 today, continue to monitor - continue current diet - continue current pain medication regiment as per Surgery - encourage OOB to chair/ Amb/ IS use - Surgery following, appreciate all recs 2. Sepsis - likely 2/2 pneumonia, meets criteria for HCAP under old guidelines and as per ID - continue doxycycline, merrem discontinued as per ID - ID following, appreciate all recs 3. Diabetes - continue current insulin regiment - accu checks ACHS 4. Hypertension - continue diltiazem 5. COPD - continue acetylcysteine, levalbuterol, montelukast 6. Schizophrenia - continue latuda 7. PPX - Protonix for GI - Heparin for DVT Patient seen, will be reviewed and discussed with attending, Dr. Hutson. <Get Hutson - Last Filed: 01/27/17 09:40> Objective - Vital Signs/Intake and Output Vital Signs (last 24 hours): Temp Pulse Resp BP Pulse Ox 98.7 F 81 20 136/80 97 01/04/17 10:37 01/04/17 10:37 01/04/17 10:37 01/04/17 10:37 01/04/17 10:37 - Labs Labs: 01/04/17 06:25 01/04/17 06:25 Assessment and Plan - Assessment and Plan (Free Text) Assessment: FEVER DECONDITIONING GAIT DYSFUNCTION POST OPERATIVE INTRA PERITONEAL HEMORRHAGE POST OPERATIVE ANEMIA S/P EXTENDED RIGHT HEMICOLECTOMY TRANSVERSE COLON SESSILE POLYP INCARCERATED INCISIONAL HERNIA DENSE INTRA ABDOMINAL ADHESIONS COPD 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 SEPSIS. 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 SEPSIS. 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 DJD SHOULDERS JOINTS HTN TACHYCARDIA LAHB LBBB T2DM BIBASILAR ATELACTASIS [facility] PNEUMONIA LEUCOCYTOSIS GRANULOCYTOSIS HYPOKALEMIA S/P KEYONNA HYPERURICEMIA ??SEPSIS VS SIRS Plan: FEVER DECONDITIONING GAIT DYSFUNCTION POST OPERATIVE INTRA PERITONEAL HEMORRHAGE POST OPERATIVE ANEMIA S/P EXTENDED RIGHT HEMICOLECTOMY TRANSVERSE COLON SESSILE POLYP INCARCERATED INCISIONAL HERNIA DENSE INTRA ABDOMINAL ADHESIONS COPD 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 SEPSIS. S/P PRBC TRANSFUSION Attending/Attestation - Attestation I have personally seen and examined this patient.: Yes I have fully participated in the care of the patient.: Yes I have reviewed all pertinent clinical information, including history, physical exam and plan: Yes
--- NOTE | 2017-01-04 09:22 | CP.PCM.PN ---
Subjective - Date & Time of Evaluation Date of Evaluation: 01/04/17 Time of Evaluation: 07:20 - Subjective Subjective: PT S&E at bedside, NAEON. Patient is tolerating diet well. Patient denies N/V, D /C, F/C. Objective - Vital Signs/Intake and Output Vital Signs (last 24 hours): Temp Pulse Resp BP Pulse Ox 98.6 F 78 12 123/86 98 01/03/17 11:19 01/03/17 11:19 01/03/17 11:19 01/03/17 18:03 01/02/17 05:29 - Medications Medications: Current Medications Acetaminophen (Tylenol 325mg Tab) 650 mg PO Q6H PRN; Protocol PRN Reason: SEE DOSE INSTRUCTIONS Acetylcysteine (Acetylcysteine 20%) 4 ml IH [id number] MIKEY PRN Reason: Protocol Last Admin: 01/04/17 07:11 Dose: 4 ml Alprazolam (Xanax) 0.5 mg PO HS [facility] PRN Reason: Protocol Last Admin: 01/03/17 21:17 Dose: 0.5 mg Diltiazem HCl (Cardizem Cd) 240 mg PO QPM [facility] PRN Reason: Protocol Last Admin: 01/03/17 18:03 Dose: 240 mg Doxycycline Hyclate (Doryx) 100 mg PO Q12 [facility] PRN Reason: Protocol Last Admin: 01/03/17 21:17 Dose: 100 mg Heparin Sodium (Porcine) (Heparin) 5,000 units SC 0600,1800 [facility] PRN Reason: Protocol Last Admin: 01/04/17 05:48 Dose: 5,000 units Hydromorphone HCl (Dilaudid) 0.5 mg IVP Q4H PRN PRN Reason: Pain, severe (8-10) Last Admin: 01/03/17 17:06 Dose: 0.5 mg Insulin Human Lispro (Humalog Med) 0 units SC ACHS [facility]KEY PRN Reason: Protocol Last Admin: 01/04/17 06:50 Dose: 1 units Levalbuterol HCl (Xopenex) 0.63 mg IH [id number] [facility] Last Admin: 01/04/17 07:11 Dose: 0.63 mg Magnesium Oxide (Mag-Ox) 400 mg PO BID [facility] Last Admin: 01/03/17 17:05 Dose: 400 mg Montelukast Sodium (Singulair) 10 mg PO QPM [facility] PRN Reason: Protocol Last Admin: 01/03/17 17:05 Dose: 10 mg Lurasidone Hcl [ Latuda] 60 Mg (Home Med) 60 mg PO QPM [facility] Last Admin: 01/03/17 17:05 Dose: Not Given Ondansetron HCl (Zofran Inj) 4 mg IVP Q4H PRN PRN Reason: Nausea/Vomiting Pantoprazole Sodium (Protonix Ec Tab) 40 mg PO 0600,1600 [facility] Last Admin: 01/04/17 05:48 Dose: 40 mg Potassium Chloride (K-Dur 20 Meq Er Tab) 20 meq PO 0800 [facility] Last Admin: 01/04/17 08:33 Dose: 20 meq Tamsulosin HCl (Flomax) 0.4 mg PO 1800 [facility] PRN Reason: Protocol Last Admin: 01/03/17 17:04 Dose: 0.4 mg - Labs Labs: 01/04/17 06:25 01/04/17 06:25 Assessment and Plan - Assessment and Plan (Free Text) Assessment: 76 y/o M POD#7 s/p R hemicolectomy Plan: c/w pain management -encourage OOBTC/Amb/IS use c/w medical management GI/DVT PPx Pt discussed with Dr. Zaman
[2017-01-04] MEDS: Magnesium Oxide 400 mg Tab UD PO SCH (09:46)
[2017-01-04 10:39] VITALS: BP 136/80; PULSE 81; RESP 20; TEMP 98.7; O2SAT 97
[2017-01-04] MEDS ORDERED: Magnesium Sulfate 2 GM in Sodium Chloride 0.9% 100 ML IVPB ONE (10:41)
--- NOTE | 2017-01-04 10:51 | CP.PCM.PN ---
Subjective - Date & Time of Evaluation Date of Evaluation: 01/04/17 Time of Evaluation: 10:25 - Subjective Subjective: DOING BETTER Objective - Vital Signs/Intake and Output Vital Signs (last 24 hours): Temp Pulse Resp BP Pulse Ox 98.7 F 81 20 136/80 97 01/04/17 10:37 01/04/17 10:37 01/04/17 10:37 01/04/17 10:37 01/04/17 10:37 - Medications Medications: Current Medications Acetaminophen (Tylenol 325mg Tab) 650 mg PO Q6H PRN; Protocol PRN Reason: SEE DOSE INSTRUCTIONS Acetylcysteine (Acetylcysteine 20%) 4 ml IH [id number] MIKEY PRN Reason: Protocol Last Admin: 01/04/17 07:11 Dose: 4 ml Alprazolam (Xanax) 0.5 mg PO HS [facility] PRN Reason: Protocol Last Admin: 01/03/17 21:17 Dose: 0.5 mg Diltiazem HCl (Cardizem Cd) 240 mg PO QPM [facility] PRN Reason: Protocol Last Admin: 01/03/17 18:03 Dose: 240 mg Doxycycline Hyclate (Doryx) 100 mg PO Q12 [facility] PRN Reason: Protocol Last Admin: 01/04/17 09:46 Dose: 100 mg Heparin Sodium (Porcine) (Heparin) 5,000 units SC 0600,1800 [facility] PRN Reason: Protocol Last Admin: 01/04/17 05:48 Dose: 5,000 units Hydromorphone HCl (Dilaudid) 0.5 mg IVP Q4H PRN PRN Reason: Pain, severe (8-10) Last Admin: 01/03/17 17:06 Dose: 0.5 mg Magnesium Sulfate 2 gm/ Sodium (Chloride) 104 mls @ 102 mls/hr IVPB ONCE ONE Stop: 01/04/17 11:42 Insulin Human Lispro (Humalog Med) 0 units SC ACHS [facility] PRN Reason: Protocol Last Admin: 01/04/17 06:50 Dose: 1 units Levalbuterol HCl (Xopenex) 0.63 mg IH [id number] [facility] Last Admin: 01/04/17 07:11 Dose: 0.63 mg Magnesium Oxide (Mag-Ox) 400 mg PO BID [facility] Last Admin: 01/04/17 09:46 Dose: 400 mg Montelukast Sodium (Singulair) 10 mg PO QPM [facility] PRN Reason: Protocol Last Admin: 01/03/17 17:05 Dose: 10 mg Lurasidone Hcl [ Latuda] 60 Mg (Home Med) 60 mg PO QPM [facility] Last Admin: 01/03/17 17:05 Dose: Not Given Ondansetron HCl (Zofran Inj) 4 mg IVP Q4H PRN PRN Reason: Nausea/Vomiting Pantoprazole Sodium (Protonix Ec Tab) 40 mg PO 0600,1600 [facility] Last Admin: 01/04/17 05:48 Dose: 40 mg Potassium Chloride (K-Dur 20 Meq Er Tab) 20 meq PO 0800 [facility] Last Admin: 01/04/17 08:33 Dose: 20 meq Tamsulosin HCl (Flomax) 0.4 mg PO 1800 [facility] PRN Reason: Protocol Last Admin: 01/03/17 17:04 Dose: 0.4 mg - Labs Labs: 01/04/17 06:25 01/04/17 06:25 - Constitutional Appears: Well - Head Exam Head Exam: ATRAUMATIC, NORMAL INSPECTION, NORMOCEPHALIC - Eye Exam Eye Exam: EOMI, Normal appearance, PERRL Pupil Exam: NORMAL ACCOMODATION, PERRL - ENT Exam ENT Exam: Mucous Membranes Moist, Normal Exam - Neck Exam Neck Exam: Full ROM, Normal Inspection. absent: Lymphadenopathy - Respiratory Exam Respiratory Exam: Clear to Ausculation Bilateral, NORMAL BREATHING PATTERN - Cardiovascular Exam Cardiovascular Exam: REGULAR RHYTHM, +S1, +S2. absent: Murmur - GI/Abdominal Exam GI & Abdominal Exam: Soft, Normal Bowel Sounds. absent: Tenderness - Rectal Exam Rectal Exam: NORMAL INSPECTION - Exam Exam: Circumcision, NORMAL INSPECTION External exam: NORMAL EXTERNAL EXAM Speculum exam: NORMAL SPECULUM EXAM Bimanual exam: NORMAL BIMANUAL EXAM - Extremities Exam Extremities Exam: Full ROM, Normal Capillary Refill, Normal Inspection. absent : Joint Swelling, Pedal Edema - Back Exam Back Exam: NORMAL INSPECTION - Neurological Exam Neurological Exam: Alert, Awake, CN II-XII Intact, Normal Gait, Oriented x3 - Psychiatric Exam Psychiatric exam: Normal Affect, Normal Mood - Skin Skin Exam: Dry, Intact, Normal Color, Warm Assessment and Plan (1) Healthcare-associated pneumonia Status: Acute (2) S/P right hemicolectomy Status: Acute (3) Sepsis Status: Acute - Assessment and Plan (Free Text) Plan: ON PO DOX
--- NOTE | 2017-01-04 11:08 | RAD ---
HISTORY: [facility] CONSOLIDATION COMPARISON: 12/30/2016 TECHNIQUE: Chest PA and lateral FINDINGS: LUNGS: No active pulmonary disease. PLEURA: No significant pleural effusion identified. No pneumothorax apparent. CARDIOVASCULAR: Normal. OSSEOUS STRUCTURES: No significant abnormalities. VISUALIZED UPPER ABDOMEN: Normal. OTHER FINDINGS: None. IMPRESSION: No active disease.
--- NOTE | 2017-01-04 19:45 | CP.PCM.DIS ---
Provider - Provider Date of Admission: 01/01/17 14:04 Attending physician: Get Hutson MD Primary care physician: Get Hutson MD Time Spent in preparation of Discharge (in minutes): 45 Hospital Course - Lab Results Lab Results: Most Recent Lab Values WBC 10.0 10^3/ul (4.5-11.0) 01/04/17 06:25 RBC 3.82 10^6/uL (3.5-6.1) 01/04/17 06:25 Hgb 11.0 gm/dL (14.0-18.0) L 01/04/17 06:25 Hct 33.9 % (42.0-52.0) L 01/04/17 06:25 MCV 88.7 fL (80.0-105.0) 01/04/17 06:25 MCH 28.8 pg (25.0-35.0) 01/04/17 06:25 MCHC 32.4 g/dl (31.0-37.0) 01/04/17 06:25 RDW 15.9 % (11.5-14.5) H 01/04/17 06:25 Plt Count 194 10^3/uL (120.0-450.0) 01/04/17 06:25 MPV 10.4 fl (7.0-11.0) 01/04/17 06:25 Gran % 79.1 % (50.0-68.0) H 01/04/17 06:25 Lymph % (Auto) 12.3 % (22.0-35.0) L 01/04/17 06:25 Pinal % (Auto) 7.8 % (1.0-6.0) H 01/04/17 06:25 Eos % (Auto) 0.7 % (1.5-5.0) L 01/04/17 06:25 Baso % (Auto) 0.1 % (0.0-3.0) 01/04/17 06:25 Gran # 7.94 (1.4-6.5) H 01/04/17 06:25 Lymph # 1.2 (1.2-3.4) 01/04/17 06:25 Pinal # 0.8 (0.1-0.6) H 01/04/17 06:25 Eos # 0.1 (0.0-0.7) 01/04/17 06:25 Baso # 0.01 K/mm3 (0.0-2.0) 01/04/17 06:25 Sodium 134 mmol/L (132-148) 01/04/17 06:25 Potassium 3.9 mmol/L (3.6-5.0) 01/04/17 06:25 Chloride 99 mmol/L (98-107) 01/04/17 06:25 Carbon Dioxide 28 mmol/L (21-33) 01/04/17 06:25 Anion Gap 11 (10-20) 01/04/17 06:25 BUN 16 mg/dL (7-21) 01/04/17 06:25 Creatinine 0.9 mg/dL (0.5-1.4) 01/04/17 06:25 Est GFR ( Amer) > 60 01/04/17 06:25 Est GFR (Non-Af Amer) > 60 01/04/17 06:25 POC Glucose (mg/dL) 191 mg/dL (65-110) H 01/03/17 21:42 Random Glucose 154 mg/dL (70-110) H 01/04/17 06:25 Calcium 8.8 mg/dL (8.4-10.5) 01/04/17 06:25 Magnesium 1.7 mg/dL (1.7-2.2) 01/04/17 06:25 Total Bilirubin 1.9 mg/dL (0.2-1.3) H 01/04/17 06:25 Direct Bilirubin 0.7 mg/dL (0.0-0.4) H 01/04/17 06:25 AST 41 U/L (15-59) 01/04/17 06:25 ALT 31 U/L (7-56) 01/04/17 06:25 Alkaline Phosphatase 73 U/L (38-133) 01/04/17 06:25 Total Protein 6.8 g/dL (5.8-8.3) 01/04/17 06:25 Albumin 3.5 g/dL (3.0-4.8) 01/04/17 06:25 Globulin 3.3 gm/dL 01/04/17 06:25 Albumin/Globulin Ratio 1.1 (1.1-1.8) 01/04/17 06:25 Discharge Exam - Head Exam Head Exam: ATRAUMATIC, NORMAL INSPECTION, NORMOCEPHALIC - Additional Findings Additional findings: FEVER DECONDITIONING GAIT DYSFUNCTION POST OPERATIVE INTRA PERITONEAL HEMORRHAGE POST OPERATIVE ANEMIA S/P EXTENDED RIGHT HEMICOLECTOMY TRANSVERSE COLON SESSILE POLYP INCARCERATED INCISIONAL HERNIA DENSE INTRA ABDOMINAL ADHESIONS COPD 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 SEPSIS. 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 SEPSIS. 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 DJD SHOULDERS JOINTS HTN TACHYCARDIA LAHB LBBB T2DM BIBASILAR ATELACTASIS [facility] PNEUMONIA LEUCOCYTOSIS GRANULOCYTOSIS HYPOKALEMIA S/P KEYONNA HYPERURICEMIA ??SEPSIS VS SIRS Plan: FEVER DECONDITIONING GAIT DYSFUNCTION POST OPERATIVE INTRA PERITONEAL HEMORRHAGE POST OPERATIVE ANEMIA S/P EXTENDED RIGHT HEMICOLECTOMY TRANSVERSE COLON SESSILE POLYP INCARCERATED INCISIONAL HERNIA DENSE INTRA ABDOMINAL ADHESIONS COPD 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 SEPSIS. S/P PRBC TRANSFUSION Discharge Plan - Discharge Medications Prescriptions: Doxycycline Hyclate [Doryx] 100 mg PO Q12 #14 cap Tamsulosin [Flomax] 0.4 mg PO DAILY #30 cap Magnesium Oxide [Mag-Ox] 400 mg PO BID #120 tab Pantoprazole [Protonix EC Tab] 40 mg PO 0600,1600 #30 ect - Follow Up Plan Condition: GOOD Disposition: HOME/ ROUTINE Instructions: Asthma (DC), Colectomy (DC), Sepsis (GEN), Hypertension (DC), Pneumonia (DC) Additional Instructions: DISCHARGE HOME REFER TO [facility] [employer] DRY CELL, HOME PT DISCHARGE MEDS PER AMBULATORY ORDERS PLUS NEW SCRIPTS SENT TO PHARMACY FOLLOW UP WITH 1 WEEK Referrals: Get Hutson MD [Primary Care Provider] - 1 Week (DISCHARGE HOME REFER TO [facility] [employer] DRY CELL, HOME PT DISCHARGE MEDS PER AMBULATORY ORDERS PLUS NEW SCRIPTS SENT TO PHARMACY FOLLOW UP WITH 1 WEEK) Dudley Walters MD [Staff Provider] - 1 Week (FOLLOW UP WITHIN 1 WEEK)
== END 2017-01-04 15:26 | disposition home or self-care (01) | DRG 871 ==
LOC: TRCU 14:04
PROVIDERS: ADMIT Internal Medicine; ATTEND Internal Medicine
PROC: F07Z9ZZ Gait Training/Functional Ambulation Treatment (ICD-10-PCS; principal; 2017-01-02)
PROC: F07M6ZZ Therapeutic Exercise Treatment of Musculoskeletal System - Whole Body (ICD-10-PCS; 2017-01-02)
DX: A41.9 Sepsis, unspecified organism (principal); J18.9 Pneumonia, unspecified organism; K66.1 Hemoperitoneum; G20 Parkinson's disease; J44.0 Chronic obstructive pulmonary disease with (acute) lower respiratory infection; K43.0 Incisional hernia with obstruction, without gangrene; K56.7 Ileus, unspecified; K91.3 Postprocedural intestinal obstruction; K91.89 Other postprocedural complications and disorders of digestive system; J98.11 Atelectasis; E11.9 Type 2 diabetes mellitus without complications; D64.9 Anemia, unspecified; I10 Essential (primary) hypertension; E55.9 Vitamin D deficiency, unspecified; E87.6 Hypokalemia; F20.9 Schizophrenia, unspecified; E66.9 Obesity, unspecified; E78.00 Pure hypercholesterolemia, unspecified; F31.9 Bipolar disorder, unspecified; I44.7 Left bundle-branch block, unspecified; Y95 Nosocomial condition; K66.0 Peritoneal adhesions (postprocedural) (postinfection); M19.012 Primary osteoarthritis, left shoulder; M19.011 Primary osteoarthritis, right shoulder; Z86.010 Personal history of colon polyps; Z87.891 Personal history of nicotine dependence; Z90.49 Acquired absence of other specified parts of digestive tract; K59.00 Constipation, unspecified; Z87.19 Personal history of other diseases of the digestive system; F41.9 Anxiety disorder, unspecified; R31.29 Other microscopic hematuria; R80.9 Proteinuria, unspecified; R00.0 Tachycardia, unspecified; E79.0 Hyperuricemia without signs of inflammatory arthritis and tophaceous disease; R26.9 Unspecified abnormalities of gait and mobility; E83.42 Hypomagnesemia

== ENCOUNTER 2017-03-13 21:19 | Emergency (ER) | payer MEDICARE ==
[2017-03-13 21:26] VITALS: TEMP 98.7; BMI 33.0
[2017-03-13] MEDS ORDERED: Albuterol-Ipratrop 3 mg / 0.5 (3 ml) UD IH STA (21:39)
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
[2017-03-13 22:27] LABS: HEMATOCRIT 39.1 % (42.0-52.0); MEAN CELL VOLUME 88.5 fl (80.0-105.0); MEAN CORPUSCULAR HEMOGLOBIN 29.2 pg (25.0-35.0); MEAN PLATELET VOLUME 10.8 fl (7.0-11.0); RED CELL DISTRIBUTION WIDTH 14.5 % (11.5-14.5); WHITE BLOOD COUNT 9.1 10^3/ul (4.5-11.0)
[2017-03-13 22:36] LABS: ALB/GLOB RATIO 1.3 (1.1-1.8); ALKALINE PHOSPHATASE 66 U/L (38-126); ALT/SGPT 29 U/L (7-56); AST/SGOT 24 U/L (17-59); BILIRUBIN,TOTAL 0.6 mg/dL (0.2-1.3); BLOOD UREA NITROGEN 15 mg/dL (7-21); CALCIUM 9.5 mg/dL (8.4-10.5); CARBON DIOXIDE 28 mmol/L (21-33); CHLORIDE 100 mmol/L (98-107); GFR AFRICAN-AMERICAN > 60; GLUCOSE,RANDOM 169 mg/dL (70-110); POTASSIUM 4.1 mmol/L (3.6-5.0); SODIUM 142 mmol/L (132-148); TOTAL PROTEIN 7.8 g/dL (5.8-8.3)
[2017-03-13 22:41] LABS: INR 1.05 (0.93-1.08); PARTIAL THROMBOPLASTIN TIME 28.7 Seconds (23.7-30.8)
[2017-03-13 22:55] LABS: TROPONIN I < 0.01 ng/mL
[2017-03-14 00:35] VITALS: RESP 20; O2SAT 94
[2017-03-14 00:36] VITALS: BP 155/84; PULSE 86
--- NOTE | 2017-03-14 10:24 | RAD ---
HISTORY: sob COMPARISON: 01/04/2017 FINDINGS: LUNGS: No active pulmonary disease. PLEURA: No significant pleural effusion identified, no pneumothorax apparent. CARDIOVASCULAR: Normal. OSSEOUS STRUCTURES: No significant abnormalities. VISUALIZED UPPER ABDOMEN: Normal. OTHER FINDINGS: None. IMPRESSION: No active disease.
--- NOTE | 2017-03-14 18:05 | CARD ---
APPROVED REPORT EKG Measurement Heart [id number] <Conclusion> Sinus rhythm with 1st degree AV block Left axis deviation RSR' or QR pattern in V1 suggests right ventricular conduction delay Inferior infarct, age undetermined Anterolateral infarct, age undetermined Abnormal ECG
== END 2017-03-14 00:36 | disposition home or self-care (01) ==
LOC: ED 21:19
DX: J45.901 Unspecified asthma with (acute) exacerbation (principal); I10 Essential (primary) hypertension; E11.9 Type 2 diabetes mellitus without complications; D64.9 Anemia, unspecified; Z87.891 Personal history of nicotine dependence

== ENCOUNTER 2017-10-22 06:12 | Day surgery (SDC) | payer MEDICARE ==
[2017-10-20 10:22] VITALS: BMI 30.4
[2017-10-22 07:07] LABS: BASO # 0.02 K/mm3 (0.0-2.0); BASO % 0.2 % (0.0-3.0); EOS # 0.1 (0.0-0.7); EOS % 1.2 % (1.5-5.0); GRAN # 5.69 (1.4-6.5); GRAN % 69.9 % (50.0-68.0); HEMOGLOBIN 14.1 g/dL (14.0-18.0); LYMPH % 24.3 % (22.0-35.0); MEAN CELL VOLUME 87.3 fl (80.0-105.0); MEAN CORPUSCULAR HEMOGLOBIN 29.8 pg (25.0-35.0); MEAN CORPUSCULAR HGB CONC 34.1 g/dl (31.0-37.0); MEAN PLATELET VOLUME 11.4 fl (7.0-11.0); MONO # 0.4 (0.1-0.6); MONO % 4.4 % (1.0-6.0); RBC 4.73 10^6/uL (3.5-6.1); WHITE BLOOD COUNT 8.2 10^3/ul (4.5-11.0)
[2017-10-22] MEDS ORDERED: Lidocaine 2% Inj (20ml) ONE (07:13)
[2017-10-22] MEDS ORDERED: Iodixanol 320 MG/ML 200 ML BOTTLE IV ONE (07:14)
[2017-10-22] MEDS ORDERED: Iohexol 350mgl/ml 50 ML ONE (07:14)
[2017-10-22] MEDS ORDERED: Phenylephrine 10 mg/ml Inj ONE (07:14)
[2017-10-22] MEDS ORDERED: Heparin 2,000 ML IV ONE (07:15)
[2017-10-22 07:22] LABS: BLOOD UREA NITROGEN 18 mg/dL (7-21); CALCIUM 10.1 mg/dL (8.4-10.5); GFR AFRICAN-AMERICAN > 60; GFR NON-AFRICAN AMERICAN > 60
[2017-10-22 07:23] LABS: INR 1.14 (0.93-1.08); PARTIAL THROMBOPLASTIN TIME 29.1 Seconds (25.1-36.5); PROTHROMBIN TIME 13.1 SECONDS (9.4-12.5)
[2017-10-22] MEDS ORDERED: Midazolam 2 MG/2 ML VIAL ONE ×2 (07:50→08:15)
[2017-10-22] MEDS ORDERED: Sodium Chloride 0.9% 1,000 ML IV SCH (09:30)
[2017-10-22 10:45] LABS: BASO # 0.01 K/mm3 (0.0-2.0); BASO % 0.2 % (0.0-3.0); EOS # 0.1 (0.0-0.7); EOS % 0.8 % (1.5-5.0); GRAN # 4.81 (1.4-6.5); GRAN % 73.3 % (50.0-68.0); LYMPH # 1.3 (1.2-3.4); LYMPH % 20.2 % (22.0-35.0); MEAN CELL VOLUME 87.3 fl (80.0-105.0); MEAN CORPUSCULAR HEMOGLOBIN 29.5 pg (25.0-35.0); MEAN CORPUSCULAR HGB CONC 33.9 g/dl (31.0-37.0); MEAN PLATELET VOLUME 11.5 fl (7.0-11.0); MONO # 0.4 (0.1-0.6); MONO % 5.5 % (1.0-6.0); RBC 4.4 10^6/uL (3.5-6.1); WHITE BLOOD COUNT 6.6 10^3/ul (4.5-11.0)
[2017-10-22 11:02] LABS: BLOOD UREA NITROGEN 16 mg/dL (7-21); CALCIUM 9.4 mg/dL (8.4-10.5); GFR AFRICAN-AMERICAN > 60; GFR NON-AFRICAN AMERICAN > 60
[2017-10-22] MEDS ORDERED: Levocetirizine Dihydrochloride [Xyzal] 5 MG (HOME MED) PO PRN (12:07)
[2017-10-22] MEDS ORDERED: Levalbuterol 0.63 MG/3 ML Inhal Soln UD IH PRN (12:10)
[2017-10-22] MEDS ORDERED: Ergocalciferol 50,000 Intl Units Cap PO SCH (12:15)
--- NOTE | 2017-10-22 12:45 | CARD ---
APPROVED REPORT EKG Measurement Heart [id number] ID [id number] <Conclusion> Sinus bradycardia with 1st degree AV block Left axis deviation Nonspecific intraventricular block Abnormal ECG
--- NOTE | 2017-10-22 13:52 | CARD ---
APPROVED REPORT EKG Measurement Heart [id number] <Conclusion> Sinus bradycardia with 1st degree AV block Left axis deviation Nonspecific intraventricular block Cannot rule out Anterior infarct, age undetermined Abnormal ECG
--- NOTE | 2017-10-22 14:54 | CARDCATH ---
PROCEDURE DATE: 10/22/2017 HISTORY: The patient is a 77-year-old male with history of hypertension, diabetes mellitus and hypercholesterolemia who presents with exertional angina. An echocardiogram reveals aortic valve disease. Because of his ongoing angina as well as his valve, the patient was brought in for cardiac catheterization. PROCEDURE: Right and left heart catheterization with coronary arteriography, left ventriculogram, supraaortic valvular injection and PTCA and stent of the circumflex artery were performed. There were no complications. The right femoral artery was cannulated with a 6-Polish sheath. The right femoral vein was cannulated with a 7-Polish sheath. I performed moderate sedation which included the presence of an independent trained observer that assisted in monitoring the patient's level of consciousness and physiologic status. After administration of Versed and fentanyl, my intra-service time was 30 minutes. Findings on catheterization included hemodynamic data which revealed a right atrial mean pressure of 4 mmHg, RV pressure was 29/8 mmHg, PA pressures were 26/12 mmHg, mean capillary wedge pressure was 8 mmHg. Simultaneous aortic root and left ventricular pressures revealed a peak gradient of 10 mmHg. There was no gradient across the mitral valve. His coronary anatomy revealed a right dominant circulation. The RCA revealed intimal irregularities throughout its course. There was a 50% stenosis in the proximal portion of the RCA. The left main artery was unremarkable. The LAD and diagonal vessels revealed diffuse intimal irregularities without critical lesions. The circumflex artery revealed an eccentric 70%-80% stenosis in its midportion. Left ventriculogram was performed in the LESLIE projection. In the LESLIE projection, wall motion was within normal limits. Estimated ejection fraction of 60%. Supra-aortic valvular injection revealed no aortic insufficiency. The patient was started on intravenous Angiomax on the fluoroscopic guide, the guiding catheter was placed in the ostium of the left main artery. An 0.014 ATW wire was used to cross the lesion in the circumflex artery. A 3.0 x 8 mm drug-eluting stent was placed and deployed at 14 atmospheres of pressure. Repeat coronary arteriography revealed an excellent result with no residual stenosis and CHELO III flow. The patient tolerated the procedure well. The Angio-Seal was used to close the right femoral artery site. The Mynx system was used to close the left femoral vein site. In summary, the procedure was successful PTCA and stent of a critically stenosed mid circumflex lesion. Drug-eluting stents were utilized. Cardiac catheterization reveals a maximum [id number] gradient of 10 mm across the aortic valve. No aortic insufficiency. Normal LV function. Single-vessel CAD of the circumflex artery as well as a 50% stenosis in the proximal portion of the RCA. Given these findings, the patient has no critical aortic stenosis. The patient will need to remain on aspirin indefinitely and Plavix for at least a year and undergo a strict cardiac risk reduction program. Joshua Araujo MD
[2017-10-22] MEDS: Pantoprazole 40 mg EC Tab PO SCH (15:15)
[2017-10-22] MEDS: Insulin Lispro (HUMAlog) HIGH Coverage SC SCH (16:30)
[2017-10-22] MEDS ORDERED: Non Formulary Medication (Cholecalciferol (Vitamin D3) [Vitamin D3] 1,000 UNIT) PO SCH (18:00)
[2017-10-22] MEDS ORDERED: LURASIDONE HCL 60 MG PO SCH (18:00)
[2017-10-22] MEDS: Magnesium Oxide 400 mg Tab UD PO SCH (18:38)
[2017-10-23 00:14] VITALS: O2SAT 97
[2017-10-23] MEDS: Pantoprazole 40 mg EC Tab PO SCH (05:09)
[2017-10-23 05:45] VITALS: BP 133/81; RESP 20; TEMP 98.4
[2017-10-23] MEDS: Magnesium Oxide 400 mg Tab UD PO SCH (09:48)
[2017-10-23] MEDS: Insulin Lispro (HUMAlog) HIGH Coverage SC SCH (09:49)
[2017-10-23 09:50] VITALS: PULSE 72
[2017-10-23] MEDS ORDERED: POLYETHYLENE GLYCOL 3350 17 GM/Dose PACKET PO SCH (10:00)
[2017-10-23] MEDS ORDERED: Temazepam [Restoril] 30 MG (HOME MED) PO SCH (10:00)
[2017-10-23] MEDS ORDERED: Non Formulary Medication (Cholecalciferol (Vitamin D3) [Vitamin D3] 1,000 UNIT) PO SCH (10:45)
--- NOTE | 2017-10-23 13:19 | PN ---
DATE: 10/23/2017 CARDIOLOGY FOLLOWUP SUBJECTIVE: The patient is asymptomatic in bed. PHYSICAL EXAMINATION: VITAL SIGNS: Blood pressure is 133/81, heart rates in the 70s. NECK: Negative JVD. LUNGS: Without rales. HEART: Reveals S1, S2 with a II/ systolic ejection murmur. EXTREMITIES: Without edema. The right groin site is stable. LABORATORY DATA: Hemoglobin is 13. BUN and creatinine were not drawn. The glucose is 121. IMPRESSION: 1. Aortic sclerosis with mild aortic stenosis without critical aortic stenosis. 2. Status post percutaneous transluminal coronary angioplasty and stent of the circumflex artery lesion. 3. Hypertension. 4. Diabetes mellitus. 5. Hypercholesterolemia. PLAN: Given these findings, the patient is stable post angioplasty. I have discussed the results with the patient and family including no critical aortic valve stenoses. He will need to remain on aspirin indefinitely and Plavix for at least a year and undergo a strict cardiac risk reduction program. Followup and instructions were given to the patient in detail. Joshua Araujo MD
--- NOTE | 2017-10-24 03:36 | DS ---
FINAL PROGRESS NOTE AND DISCHARGE SUMMARY The patient was seen lying in room 266, bed 2. PHYSICAL EXAMINATION: VITAL SIGNS: T-max 98.4. Telemetry shows sinus rhythm; heart rate 60, 62, 65. Blood pressure 133/81, 123/52. Respiration 20, 22. O2 sat 97% to 96%. Telemetry monitoring shows sinus rhythm. Sinus bradycardia, asymptomatic. HEENT: Head examination, normocephalic, atraumatic. [place] conjunctivae. Anicteric sclerae. No oropharyngeal lesion. NECK: No neck rigidity. CHEST: Kyphosis. LUNGS: Shows no rales, crackles, or wheezing. CARDIOVASCULAR: S1, S2, regular rhythm. Questionable soft systolic murmur, left sternal border, right second intercostal space, left second intercostal space, left sternal border. ABDOMEN: Protuberant, obese. Positive bowel sounds. Positive surgical scar. GENITALIA: Male. Right groin and left groin was examined. No hematoma noted. EXTREMITIES: Pulses are palpable of the lower extremity. MUSCULOSKELETAL: A body mass index of 30.5. DIAGNOSTICS DATA: None. Fingerstick blood sugar 121, 118, 109, 111. Blood type A, negative. FINAL IMPRESSION, PLAN AND, DISCHARGE DIAGNOSES: 1. Coronary artery disease. 2. Exertional angina. 3. Questionable syncope. 4. Moderate aortic stenosis. 5. Status post cardiac catheterization and angioplasty and stent placement of the left circumflex artery. 6. 50% stenosis of the proximal right coronary artery. 7. 70 to 80% stenosis. 8. Eccentric 70 to 80% stenosis of the mid left circumflex artery. 9. Left ventricular ejection fraction of 60%. 10. Successful angioplasty and stent placement of the critically stenosed mid left circumflex artery, 70 to 80% stenosis, with drug-eluting stent. 11. History of hypertension, history of hyperlipidemia, history of chronic constipation, history of anxiety, depression, insomnia, history of hypovitaminosis D, history of chronic obstructive pulmonary disease, history of prostate hypertrophy, history of dyslipidemia, history of type 2 diabetes mellitus. 1. Coronary artery disease. 2. Status post angioplasty and stent placement of the left circumflex artery. 3. Aortic stenosis. 4. Left ventricular ejection fraction 55%. 5. Moderate valvular aortic stenosis. 6. Abnormal stress test. 7. Hypertension. 8. Chronic obstructive pulmonary disease. 9. Mild normocytic anemia. 10. Mild granulocytosis. 11. Hyperglycemia. 12. History of chronic constipation. 13. History of hypertension. 14. History of insomnia. 15. Hypovitaminosis D. 16. Chronic obstructive pulmonary disease. 17. History of anxiety, depression and questionable bipolar disorder versus schizophrenia. 18. Prostatic hypertrophy. 19. Dyslipidemia. 20. Type 2 noninsulin-requiring diabetes mellitus. PLAN: At this time, patient has been ordered to be discharged home after cleared by Cardiology. Patient is to resume all medications that includes Ecotrin and Plavix. Discharge followup with Dr. Hutson within one week. Patient was advised weight loss. Patient was given a copy of moderate carbohydrate, heart-healthy, low-cholesterol diet to the patient upon discharge. DISCHARGE MEDICATIONS: 1. Patient is to resume his nebulizer treatment. 2. Ventolin HFA. 3. Ecotrin 81 daily. 4. Lipitor 20 mg daily. 5. Vitamin D3 2000 units daily. 6. Plavix 75 daily. 7. Cardizem CD 240 mg daily. 8. Vitamin D2 50,000 units weekly. 9. Xyzal 5 mg daily p.r.n. 10. Amitiza 24 mcg daily or b.i.d. 11. Latuda 60 mg daily. 12. Magnesium oxide 400 mg twice a day. 13. Metformin 1000 mg twice a day. 14. Singulair 10 mg daily. 15. MiraLax 17 g daily. 16. Flomax 0.4 mg daily. 17. Restoril 30 mg daily. 18. Diovan 40 mg daily. 19. Patient is to resume his metformin from tomorrow, which is 10/24/2017 or 10/25/2017. Discharge followup with Dr. Hutson in one week. Again, patient is to resume his metformin on 10/25. During this hospitalization, the patient was extensively explained about the details of his medical condition, diagnoses, treatment plan, management plan, followup plan, weight loss; all was explained to the patient at length and all questions concerned were answered by Dr. Hutson. Time spent in the entire discharge process was more than 45 minutes. Dictated and electronically signed, not read. Get Hutson MD [facility] # [id number] MTDD
--- NOTE | 2017-10-25 09:01 | HP ---
HISTORY OF PRESENT ILLNESS: The patient is seen in 266, bed 2. The patient is admitted post angioplasty by Dr. Joshua Araujo after angioplasty and stent of the left circumflex. CODE STATUS: Full code. LIVING WILL AND ADVANCED DIRECTIVE: None. ALLERGIES: NONE. HEIGHT: 5 feet 6. WEIGHT: 190. BMI: 30. HOME MEDICATIONS: MiraLax 17 g as needed, Amitiza 24 mcg daily, Plavix 75 mg daily, Diovan 40 mg daily, Restoril 30 mg daily, Xyzal 5 mg daily, vitamin D 50,000 units weekly and vitamin D3 at 2000 units daily, Ecotrin 81 mg daily, Singulair 10 mg daily, magnesium oxide 400 twice a day, Latuda 60 mg daily, Cardizem CD 240 mg daily, Flomax 0.4 mg daily, Lipitor 10 mg daily, albuterol inhaler every 6, metformin 1000 mg twice a day. SOCIAL HISTORY: Positive for alcohol use now and then. Former smoker. Denies communicable transmissible disease. FAMILY HISTORY: Positive for diabetes, hypertension and psychiatric conditions. OCCUPATIONAL HISTORY: Disabled. PAST MEDICAL AND SURGICAL HISTORY: History of hypertension, history of chronic obstructive pulmonary disease, history of questionable pulmonary nodules and abnormal CT scan of the chest, history of severe emphysema, history of syncope, history of colonic polyp, history of diverticulosis of the colon. The patient's past medical history is significant for history of transverse colon sessile polyp, history of incarcerated incisional hernia, history of abdominal adhesions, history of extended right hemicolectomy, history of repair of incarcerated incisional hernia, history of lysis of adhesions, intra-abdominal adhesions. Past medical history is significant for history of type 2 diabetes mellitus, history of COPD, history of questionable syncope, history of chronic constipation, history of proteinuria, history of insomnia, history of anxiety, depression, history of multiple psychiatric disorders, history of hypovitaminosis D, history of hypomagnesemia, history of prostate hypertrophy, history of dyslipidemia, history of abdominal polyp, history of morbid obesity. PHYSICAL EXAMINATION: GENERAL: The patient is seen in room 266, bed 2. The patient is lying in the bed. The patient is comfortable. The patient is alert. The patient is awake. The patient is responsive, oriented x3. VITAL SIGNS: T-max is 97.7. Telemetry shows sinus rhythm; heart rate 58, 59, 63; blood pressure 140/76, 139/79, 161/81; respirations 18; O2 sat 100%. HEENT: Head examination normocephalic, atraumatic. HEENT examination shows pink conjunctivae. Anicteric sclerae. No oropharyngeal lesion. No neck rigidity. NECK: Questionable soft carotid bruit noted. CHEST: Kyphosis. LUNGS: Shows occasional rhonchi. No rales, crackles or wheezing. CARDIOVASCULAR: S1, S2. Positive systolic murmur, right second intercostal space, left second intercostal space, left sternal border. ABDOMEN: Positive surgical scar. In the mid abdomen, protuberant abdomen. EXTREMITIES: Right groin dressing is intact. Positive pulses noted. Lower extremity shows no pitting edema, no calf tenderness, no Homans sign. NEUROLOGIC: The patient is alert, awake, oriented x3. Gait examination not tested. The patient is lying in the bed. MUSCULOSKELETAL: Shows a body mass index of 30.5. DIAGNOSTICS: CBC reviewed. Hemoglobin and hematocrit 14.1 and 41.3 or 13 and 38.4, platelet 161, 172. PT/PTT is within normal limit. Chemistry shows glucose of 124 and 153. Rest of the chemistries within normal limit. Blood type is A negative. IMPRESSION: 1. Coronary artery disease. 2. Status post angioplasty and stent placement of the left circumflex artery. 3. Aortic stenosis. 4. Left ventricular ejection fraction 55%. 5. Moderate valvular aortic stenosis. 6. Abnormal stress test. 7. Hypertension. 8. Chronic obstructive pulmonary disease. 9. Mild normocytic anemia. 10. Mild granulocytosis. 11. Hyperglycemia. 12. History of chronic constipation. 13. History of hypertension. 14. History of insomnia. 15. Hypovitaminosis D. 16. Chronic obstructive pulmonary disease. 17. History of anxiety, depression and questionable bipolar disorder versus schizophrenia. 18. Prostatic hypertrophy. 19. Dyslipidemia. 20. Type 2 noninsulin-requiring diabetes mellitus. PLAN: At this time, the patient has been admitted to extended recovery by Dr. Joshua Araujo. The patient has been started on aspirin 81, Plavix 75, Ecotrin 81 mg daily, Lipitor 40 mg daily, Plavix 75 daily, IV fluid 0.9 normal saline at 100 mL an hour. Repeat EKG ordered. Consistent carbohydrate diet ordered. The patient is resumed on his psychotropic medication. The patient is resumed on DVT, GI prophylaxis. The patient will be resumed on DuoNeb nebulizers. The patient will be resumed on sliding scale insulin coverage. The patient is started on statins. The patient is started on Xopenex nebulizer. The patient is started on aspirin 81 daily, Flomax 0.4 daily, Lipitor 40 daily. The patient is started on most of his home medications. The patient is continued on IV fluid as per Cardiology. The patient will be ordered SCDs and SHEREE stockings. DVT, GI prophylaxis ordered. At present, the patient will be continued to be observed and maintained in the post angioplasty protocol at this time. The patient'S further management will be determined by recommendation from cardiology and the patient's hemodynamic status and the patient's clinical condition. Dictated and electronically signed, not read. Get Hutson MD
== END 2017-10-23 12:23 | disposition home or self-care (01) ==
LOC: CATH 06:12 → 2RNO 09:30 → CATH 10-23 10:45
PROVIDERS: ATTEND Internal Medicine
DX: I25.10 Atherosclerotic heart disease of native coronary artery without angina pectoris (principal); I70.0 Atherosclerosis of aorta; I44.0 Atrioventricular block, first degree; J44.9 Chronic obstructive pulmonary disease, unspecified; N40.0 Benign prostatic hyperplasia without lower urinary tract symptoms; K59.09 Other constipation; I35.0 Nonrheumatic aortic (valve) stenosis; I10 Essential (primary) hypertension; G47.00 Insomnia, unspecified; F41.9 Anxiety disorder, unspecified; D64.9 Anemia, unspecified; E11.65 Type 2 diabetes mellitus with hyperglycemia; E55.9 Vitamin D deficiency, unspecified; E78.00 Pure hypercholesterolemia, unspecified; E78.5 Hyperlipidemia, unspecified; Z79.02 Long term (current) use of antithrombotics/antiplatelets; Z79.82 Long term (current) use of aspirin; Z79.84 Long term (current) use of oral hypoglycemic drugs; Z83.3 Family history of diabetes mellitus; Z82.49 Family history of ischemic heart disease and other diseases of the circulatory system; Z81.8 Family history of other mental and behavioral disorders; Z87.891 Personal history of nicotine dependence; Z95.5 Presence of coronary angioplasty implant and graft; R94.39 Abnormal result of other cardiovascular function study
CPT/HCPCS: 36415; 80048; 82948 ×2; 85025; 85610; 85730; 86850; 86900; 93005; 93460; 99152; 99153; C1760 ×2; C1769 ×4; C1874; C1887; C1894; C2629; C9600; J0583; J1644; J2250; J3010; J7040 ×2; Q9966; Q9967